=== PATIENT | female | born 1985 ===

== ENCOUNTER 2022-06-14 15:12 | Observation (INO) | payer OTHER ==
[2022-06-14] MEDS ORDERED: LORazepam 2 MG/ML INJ IM STA (15:18)
[2022-06-14 15:49] LABS: Basophils # (A) 0.1 k/uL (0-0.2); Basophils % (A) 1 %; Eosinophils # (A) 0.2 k/uL (0-0.7); Eosinophils % (A) 2 %; HCT 44.4 % (34.0-46.0); HGB 14.4 gm/dL (11.4-16.0); Lymphocytes # (A) 4.3 k/uL (1.0-4.8); Lymphocytes % (A) 34 %; MCH 28.9 pg (25.0-35.0); MCHC 32.4 g/dL (31.0-37.0); MCV 89.3 fL (80.0-100.0); Mean Platelet Volume 7.9; Monocytes # (A) 0.4 k/uL (0-1.0); Monocytes % (A) 3 %; Neutrophils # (A) 7.3 k/uL (1.3-7.7); Neutrophils % (A) 58 %; Platelet Count 347 k/uL (150-450); RBC 4.97 m/uL (3.80-5.40); WBC 12.5 k/uL (3.8-10.6)
[2022-06-14 15:56] LABS: African American GFR (CKD) >90 (>60 ml/min/1.73 sqM); Albumin 4.4 g/dL (3.5-5.0); Anion Gap 19 mmol/L; Carbon Dioxide 17 mmol/L (22-30); Chloride 111 mmol/L (98-107); Glucose 88 mg/dL (74-99); Non-African American GFR(CKD) >90 (>60 ml/min/1.73 sqM); Potassium 3.9 mmol/L (3.5-5.1); Sodium 147 mmol/L (137-145); Total Protein 7.5 g/dL (6.3-8.2)
--- NOTE | 2022-06-14 15:56 | ED ---
General Adult HPI - General Chief complaint: Alcohol Stated complaint: ETOH Time Seen by Provider: 06/14/22 15:18 Source: patient, EMS, RN notes reviewed, old records reviewed Mode of arrival: EMS Limitations: no limitations - History of Present Illness Initial comments: 37-year-old female presenting for alcohol intoxication. Patient is not compliant with a history but she was found by paramedics with a fifth of vodka. She does admit to alcohol consumption. Patient is not cooperative with history and physical exam. She is aggressive and required 4. restraints. - Related Data Allergies Allergy/AdvReac Type Severity Reaction Status Date / Time Penicillins Allergy Unknown Verified 06/14/22 15:24 Review of Systems ROS Statement: Those systems with pertinent positive or pertinent negative responses have been documented in the HPI. ROS Other: All systems not noted in ROS Statement are negative. General Exam Limitations: no limitations General appearance: alert, appears intoxicated Head exam: Present: atraumatic, normocephalic Eye exam: Present: normal appearance, PERRL ENT exam: Present: other ( poor Dentition) Neck exam: Present: normal inspection. Absent: tenderness Respiratory exam: Present: normal lung sounds bilaterally. Absent: respiratory distress Cardiovascular Exam: Present: normal rhythm, tachycardia GI/Abdominal exam: Present: soft. Absent: distended, tenderness, guarding Extremities exam: Present: normal inspection, normal capillary refill Psychiatric exam: Present: agitated, anxious Skin exam: Present: warm, dry, intact Course Vital Signs 06/14/22 15:12 Temperature 98.1 F Pulse Rate 119 H Respiratory 20 Rate Blood Pressure 162/76 O2 Sat by Pulse 96 Oximetry Procedures - Restraint - Face to Face Restraint Occurrence 1 Patient's Immediate Situation: Endangers self safety, Endangers others' safety, Endangers staff safety, Violent behavior Patient's Reaction to the Intervention: Uncooperative, Angry, Hostile, Belligerent Patient's Medical & Behavioral Condition: Awake, Alert, Anxious, Agitated Need to Continue or Terminate Restraint or Seclusion: Continue Face to Face Eval of Restraint Date: 06/14/22 Face to Face Eval of Restraint Time: 15:17 Medical Decision Making - Medical Decision Making Patient presents with alcohol intoxication, belligerent, aggressive behavior requiring 4. restraints. Patient does admit to alcohol consumption and states she is an alcoholic. She has an alcohol level [id number]. She will be admitted for close monitoring. Case discussed with [facility] physician group. - Lab Data Result diagrams: 06/14/22 15:36 06/14/22 15:36 Lab Results 06/14/22 06/14/22 Range/Units 15:36 15:36 WBC 12.5 H (3.8-10.6) k/uL RBC 4.97 (3.80-5.40) m/uL Hgb 14.4 (11.4-16.0) gm/dL Hct 44.4 (34.0-46.0) % MCV 89.3 (80.0-100.0) fL MCH 28.9 (25.0-35.0) pg MCHC 32.4 (31.0-37.0) g/dL RDW 15.0 (11.5-15.5) % Plt Count 347 (150-450) k/uL MPV 7.9 Neutrophils % 58 % Lymphocytes % 34 % Monocytes % 3 % Eosinophils % 2 % Basophils % 1 % Neutrophils # 7.3 (1.3-7.7) k/uL Lymphocytes # 4.3 (1.0-4.8) k/uL Monocytes # 0.4 (0-1.0) k/uL Eosinophils # 0.2 (0-0.7) k/uL Basophils # 0.1 (0-0.2) k/uL Sodium 147 H (137-145) mmol/L Potassium 3.9 (3.5-5.1) mmol/L Chloride 111 H (98-107) mmol/L Carbon Dioxide 17 L (22-30) mmol/L Anion Gap 19 mmol/L BUN 5 L (7-17) mg/dL Creatinine 0.62 (0.52-1.04) mg/dL Est GFR (CKD-EPI)AfAm >90 (>60 ml/min/1.73 sqM) Est GFR (CKD-EPI)NonAf >90 (>60 ml/min/1.73 sqM) Glucose 88 (74-99) mg/dL Calcium 9.1 (8.4-10.2) mg/dL Magnesium 1.8 (1.6-2.3) mg/dL Total Bilirubin 0.4 (0.2-1.3) mg/dL AST 45 H (14-36) U/L ALT 14 (4-34) U/L Alkaline Phosphatase 86 (38-126) U/L Total Protein 7.5 (6.3-8.2) g/dL Albumin 4.4 (3.5-5.0) g/dL Serum Alcohol 276 H* mg/dL Disposition Clinical Impression: Alcoholic intoxication Disposition: ADMITTED IP TO THIS HOSP Condition: Stable Is patient prescribed a controlled substance at d/c from ED?: No Referrals: None,Stated [Primary Care Provider] - 1-2 days Time of Disposition: 16:28
[2022-06-14 15:57] LABS: ALT 14 U/L (4-34); AST 45 U/L (14-36); Alkaline Phosphatase 86 U/L (38-126); Blood Urea Nitrogen 5 mg/dL (7-17); Calcium 9.1 mg/dL (8.4-10.2); Magnesium 1.8 mg/dL (1.6-2.3); Total Bilirubin 0.4 mg/dL (0.2-1.3)
[2022-06-14 15:58] LABS: Alcohol 276 mg/dL
[2022-06-14] MEDS ORDERED: LORazepam 2 MG/ML INJ IV STA (16:17)
[2022-06-14] MEDS ORDERED: NALOXONE 0.4 MG/ML 1 ML VIAL IV PRN (16:26)
[2022-06-14] MEDS ORDERED: THIAMINE 100 MG/ML 2 ML VIAL IM STA (16:27)
[2022-06-14] MEDS ORDERED: LORazepam 2 MG/ML INJ IV PRN (16:27)
[2022-06-14] MEDS ORDERED: ZIPRASIDONE 20 MG VIAL IM STA (16:33)
[2022-06-14] MEDS: SODIUM CHLORIDE 0.9% 1,000 ML IV SCH (16:47)
--- NOTE | 2022-06-14 17:25 | P.HPIM ---
History of Present Illness H&P Date: 06/14/22 Chief Complaint: Mental status changes Patient is a 37-year-old female presented to the hospital with intoxication. History is limited given patient's and able to provide. She is a poor historian. However there are medical contraindications patient was found by paramedics with a fifth of vodka and her hand. Patient reports that she drinks excessively at the fifth of vodka daily for several years. She has a desire to quit alcohol use. She reports that she has gone through significant all call withdrawals in the past and has had seizures. In the emergency room she is requiring to be restrained due to her aggressive behavior and agitation. She is not having any complaints of headaches no nausea vomiting fever or chills no cough or shortness of breath Review of Systems Full 12 point complete review of systems conducted pertinent positives noted in the HPI Medications and Allergies Allergies Allergy/AdvReac Type Severity Reaction Status Date / Time Penicillins Allergy Unknown Verified 06/14/22 15:24 Physical Exam Osteopathic Statement: *. No significant issues noted on an osteopathic structural exam other than those noted in the History and Physical/Consult. Vitals: Vital Signs Temp Pulse Resp BP Pulse Ox 06/14/22 15:12 98.1 F 119 H 20 162/76 96 Intake and Output 06/14/22 06/14/22 06/14/22 06:59 14:59 22:59 Other: Weight 113.398 kg Limitations: no limitations General appearance: alert, appears intoxicated Head exam: Normocephalic atraumatic Eye exam: Present: normal appearance, PERRL ENT exam: Patient has poor dentition Neck exam: Trachea midline no JVD neck is supple Respiratory exam: Breath sounds equal bilateral no wheezing Cardiovascular Exam: Regular rate and rhythm normal S1-S2 GI/Abdominal exam: soft. Absent: distended, tenderness, guarding Extremities exam: Normal inspection normal capillary refill below extremity edema Psychiatric exam: agitated, anxious Skin exam: Skin is warm dry and intact without any obvious rashes or lesions Results CBC & Chem 7: 06/14/22 15:36 06/14/22 15:36 Labs: Abnormal Lab Results - Last 24 Hours (Table) 06/14/22 06/14/22 Range/Units 15:36 15:36 WBC 12.5 H (3.8-10.6) k/uL Sodium 147 H (137-145) mmol/L Chloride 111 H (98-107) mmol/L Carbon Dioxide 17 L (22-30) mmol/L BUN 5 L (7-17) mg/dL AST 45 H (14-36) U/L Serum Alcohol 276 H* mg/dL Assessment and Plan (1) Alcoholic intoxication Current Visit: Yes Status: Acute Code(s): F10.929 - ALCOHOL USE, UNSPECIFIED WITH INTOXICATION, UNSPECIFIED SNOMED Code(s): 96046900 Plan: INTOXICATION alcohol Metabolic encephalopathy Impending alcohol withdrawal -Patient's serum alcohol 276. Altered with mentation delirious. Having behavioral aggression requiring 4 point restraints and chemical restraint of Geodon and Ativan. -Patient is admitted to the hospital for supportive care IV fluids. She reports intention of quitting alcohol. She has a medical history of alcohol withdrawal seizures -Continue with CIWA protocol, thiamine, MVI, IV fluids Hypernatremia -Continue with IV fluids Hypertension -Resume home medication when reconsult ionization is available. At this time we will start with metoprolol 25 mg twice a day Diet: Regular CODE STATUS: Full code DVT prophylaxis: Lovenox
[2022-06-14] MEDS: METOPROLOL TARTRATE 25 MG TAB PO SCH (22:42)
[2022-06-15] MEDS: LORazepam 2 MG/ML INJ IV PRN ×8 (01:06→23:10)
[2022-06-15 07:44] LABS: Amphetamine Screen,Urine Detected (NotDetected); Benzodiazepines Screen,Urine Detected (NotDetected); Cocaine Screen,Urine Not Detected (NotDetected); Opiate Screen,Urine Not Detected (NotDetected); Phencyclidine Screen,Urine Not Detected (NotDetected); Urn Cannabinoid Scrn Not Detected (NotDetected)
[2022-06-15 07:45] LABS: Barbiturate Screen,Urine Not Detected (NotDetected); Methadone Screen, Urine Not Detected (NotDetected); Oxycodone Screen, Urine Not Detected (NotDetected); Tricyclic Antidepressant,Urine Not Detected (NotDetected)
[2022-06-15 07:47] LABS: Appearance,Urine Cloudy (Clear); Bilirubin,Urine Negative (Negative); Blood,Urine Negative (Negative); Color,Urine Yellow; Glucose,Urine (UA) Negative (Negative); Ketones,Urine Negative (Negative); Leukocyte Esterase,Urine Large (Negative); Mucus,Urine Occasional /hpf; Nitrite,Urine Negative (Negative); Protein,Urine Trace (Negative); RBC,Urine 8 /hpf (0-5); Specific Gravity,Urine 1.023 (1.001-1.035); Squamous Epithelial Cell,Urine 8 /hpf (0-4); Urobilinogen,Urine <2.0 mg/dL (<2.0); WBC,Urine 67 /hpf (0-5)
[2022-06-15] MEDS: SODIUM CHLORIDE 0.9% 1,000 ML IV SCH ×2 (08:00→17:16)
[2022-06-15] MEDS: ENOXAPARIN 40 MG/0.4 ML SYRINGE SQ SCH (08:01)
[2022-06-15] MEDS: THIAMINE 100 MG TAB PO SCH ×2 (08:02→17:16)
[2022-06-15] MEDS: METOPROLOL TARTRATE 25 MG TAB PO SCH ×2 (08:02→20:24)
[2022-06-15] MEDS: MULTIVITAMINS, THERA 1 EACH TAB PO SCH (08:02)
[2022-06-15 08:53] LABS: Basophils # (A) 0.12 X 10*3/uL (0.00-0.10); Basophils % (A) 0.9 %; Eosinophils # (A) 0.23 X 10*3/uL (0.04-0.35); Eosinophils % (A) 1.6 %; HCT 40.3 % (37.2-46.3); HGB 12.9 g/dL (12.0-15.0); Immature Grans, Automated 0.5 %; Lymphocytes # (A) 3.45 X 10*3/uL (0.90-5.00); Lymphocytes % (A) 24.6 %; MCH 28.4 pg (27.0-32.0); MCV 88.6 fL (80.0-97.0); Monocytes % (A) 8.6 %; NRBC Per 100 WBC 0 /100 WBCS (0.0-0.0); Neutrophils # (A) 8.93 X 10*3/uL (1.80-7.70); Neutrophils % (A) 63.8 %; Platelet Count 328 X 10*3/uL (140-440); RBC 4.55 X 10*6/uL (4.10-5.20); RDW 15.1 % (11.5-14.5)
[2022-06-15] MEDS: CEPHALEXIN 500 MG CAP PO SCH ×2 (09:02→20:24)
[2022-06-15] MEDS: LURASIDONE 20 MG TAB PO SCH (09:02)
[2022-06-15] MEDS: GABAPENTIN 400 MG CAP PO SCH ×3 (09:02→20:24)
[2022-06-15] MEDS: FLUoxetine HCL 20 MG CAP PO SCH (09:12)
[2022-06-15 10:49] LABS: African American GFR (CKD) 136.9 (60.0-200.0); Anion Gap 10.8 mmol/L (10.00-18.00); BUN/Creat Ratio 16.17 Ratio (12.00-20.00); Blood Urea Nitrogen 9.7 mg/dL (9.0-27.0); Calcium 9.1 mg/dL (8.7-10.3); Carbon Dioxide 22.2 mmol/L (20.0-27.5); Non-African American GFR(CKD) 118.1 (60.0-200.0); Potassium 4.1 mmol/L (3.5-5.5)
--- NOTE | 2022-06-15 13:19 | P.PN ---
Subjective Progress Note Date: 06/15/22 Principal diagnosis: Alcohol intoxication Patient seen and examined today. She is complaining of some tremors and withdrawal symptoms of alcohol. She still requiring Ativan Objective - Vital Signs Vital signs: Vital Signs Temp 98.6 F 06/15/22 11:30 Pulse 86 06/15/22 11:30 Resp 18 06/15/22 11:51 BP 180/98 06/15/22 11:30 Pulse Ox 99 06/15/22 11:30 FiO2 Intake & Output 06/14/22 06/15/22 06/15/22 18:59 06:59 18:59 Intake Total 500 Balance 500 Weight 113.398 kg 113.398 kg Intake: Oral 500 Other: Voiding Method Toilet # Voids 1 - Exam INTOXICATION alcohol present on admission Metabolic encephalopathy Impending alcohol withdrawal -Patient's serum alcohol was 276. Altered with mentation delirious. Having behavioral aggression requiring 4 point restraints and chemical restraint of Geodon and Ativan. -Patient is now off of restraints. -Patient is admitted to the hospital for supportive care IV fluids. She reports intention of quitting alcohol. She has a medical history of alcohol withdrawal seizures -Continue with CIWA protocol, thiamine, MVI, IV fluids Hypernatremia -Improved with IV fluids Hypertension -25 mg twice a day metoprolol Depression Anxiety -Continue with patient's home medication including latuda, prozac. Insomnia -Mirtazapine daily at bedtime Diet: Regular CODE STATUS: Full code DVT prophylaxis: Lovenox - Labs CBC & Chem 7: 06/15/22 06:07 06/15/22 06:07 Labs: Abnormal Lab Results - Last 24 Hours (Table) 06/14/22 06/14/22 06/15/22 Range/Units 15:36 15:36 05:00 WBC 12.5 H (3.8-10.6) k/uL RDW (11.5-14.5) % Immature Gran # (0.00-0.04) X 10*3/uL Neutrophils # (1.80-7.70) X 10*3/uL Monocytes # (0.20-1.00) X 10*3/uL Basophils # (0.00-0.10) X 10*3/uL Sodium 147 H (137-145) mmol/L Chloride 111 H (98-107) mmol/L Carbon Dioxide 17 L (22-30) mmol/L BUN 5 L (7-17) mg/dL AST 45 H (14-36) U/L Urine Appearance Cloudy H (Clear) Urine Protein Trace H (Negative) Ur Leukocyte Esterase Large H (Negative) Urine RBC 8 H (0-5) /hpf Urine WBC 67 H (0-5) /hpf Ur Squamous Epith Cells 8 H (0-4) /hpf Urine Mucus Occasional H (None) /hpf Ur Amphetamines Screen Detected H (NotDetected) U Benzodiazepines Scrn Detected H (NotDetected) Serum Alcohol 276 H* mg/dL 06/15/22 Range/Units 06:07 WBC 14.00 H (3.8-10.6) k/uL RDW 15.1 H (11.5-14.5) % Immature Gran # 0.07 H (0.00-0.04) X 10*3/uL Neutrophils # 8.93 H (1.80-7.70) X 10*3/uL Monocytes # 1.20 H (0.20-1.00) X 10*3/uL Basophils # 0.12 H (0.00-0.10) X 10*3/uL Sodium (137-145) mmol/L Chloride (98-107) mmol/L Carbon Dioxide (22-30) mmol/L BUN (7-17) mg/dL AST (14-36) U/L Urine Appearance (Clear) Urine Protein (Negative) Ur Leukocyte Esterase (Negative) Urine RBC (0-5) /hpf Urine WBC (0-5) /hpf Ur Squamous Epith Cells (0-4) /hpf Urine Mucus (None) /hpf Ur Amphetamines Screen (NotDetected) U Benzodiazepines Scrn (NotDetected) Serum Alcohol mg/dL Assessment and Plan (1) Alcoholic intoxication Current Visit: Yes Status: Acute Code(s): F10.929 - ALCOHOL USE, UNSPECIFIED WITH INTOXICATION, UNSPECIFIED SNOMED Code(s): 50460089
[2022-06-15] MEDS: LOSARTAN 50 MG TAB PO SCH (17:16)
[2022-06-15] MEDS: MIRTAZAPINE 15 MG TAB PO SCH (20:24)
[2022-06-16] MEDS: LORazepam 2 MG/ML INJ IV PRN (04:57)
[2022-06-16] MEDS: LURASIDONE 20 MG TAB PO SCH (08:14)
[2022-06-16] MEDS: SODIUM CHLORIDE 0.9% 1,000 ML IV SCH (08:14)
[2022-06-16] MEDS: METOPROLOL TARTRATE 25 MG TAB PO SCH ×2 (08:14→20:00)
[2022-06-16] MEDS: FLUoxetine HCL 20 MG CAP PO SCH (08:14)
[2022-06-16] MEDS: CEPHALEXIN 500 MG CAP PO SCH ×2 (08:14→20:00)
[2022-06-16] MEDS: ENOXAPARIN 40 MG/0.4 ML SYRINGE SQ SCH (08:14)
[2022-06-16] MEDS: LOSARTAN 50 MG TAB PO SCH (08:14)
[2022-06-16] MEDS: GABAPENTIN 400 MG CAP PO SCH ×3 (08:14→21:57)
[2022-06-16] MEDS: THIAMINE 100 MG TAB PO SCH ×2 (08:14→16:43)
[2022-06-16] MEDS: MULTIVITAMINS, THERA 1 EACH TAB PO SCH (08:14)
[2022-06-16] MEDS: chlordiazePOXIDE 25 MG CAP PO PRN ×2 (11:21→20:00)
--- NOTE | 2022-06-16 16:44 | P.PN ---
Subjective Principal diagnosis: Alcohol intoxication Patient seen and examined. She still having symptoms of withdrawal from alcohol. She is requiring IV Ativan. Still has tremors Objective - Vital Signs Vital signs: Vital Signs Temp 98.4 F 06/16/22 12:38 Pulse 80 06/16/22 12:38 Resp 16 06/16/22 12:38 BP 141/88 06/16/22 12:38 Pulse Ox 94 L 06/16/22 12:38 FiO2 Intake & Output 06/15/22 06/16/22 06/16/22 18:59 06:59 18:59 Intake Total 900 Balance 900 Intake: Intake, IV Titration 900 Amount Sodium Chloride 0.9% 1, 900 000 ml @ 75 mls/hr IV . [id number] [facility] Rx#:[id number] Other: Voiding Method Toilet Toilet # Voids 4 - Exam INTOXICATION alcohol present on admission Metabolic encephalopathy Impending alcohol withdrawal -Patient's serum alcohol was 276. Altered with mentation delirious. Having behavioral aggression requiring 4 point restraints and chemical restraint of Geodon and Ativan. -Patient is now off of restraints. -Patient is admitted to the hospital for supportive care IV fluids. She reports intention of quitting alcohol. She has a medical history of alcohol withdrawal seizures -Continue with CIWA protocol, thiamine, MVI, IV fluids Hypernatremia -Improved with IV fluids Hypertension -25 mg twice a day metoprolol Depression Anxiety -Continue with patient's home medication including latuda, prozac. Insomnia -Mirtazapine daily at bedtime Diet: Regular CODE STATUS: Full code DVT prophylaxis: Lovenox - Labs CBC & Chem 7: 06/15/22 06:07 06/15/22 06:07 Labs: Microbiology - Last 24 Hours (Table) 06/15/22 05:00 Urine Culture - Final Urine,Voided Strep agalactiae - (group b) Assessment and Plan (1) Alcoholic intoxication Current Visit: Yes Status: Acute Code(s): F10.929 - ALCOHOL USE, UNSPECIFIED WITH INTOXICATION, UNSPECIFIED SNOMED Code(s): 12740674 Plan: INTOXICATION alcohol Metabolic encephalopathy Impending alcohol withdrawal -Patient's serum alcohol 276. Altered with mentation delirious. Patient was requiring 4 point restraints on admission which has now improved and she is alert and responsive and following commands -Patient is admitted to the hospital for supportive care IV fluids. She reports intention of quitting alcohol. She has a medical history of alcohol withdrawal seizures -Continue with CIWA protocol, thiamine, MVI, IV fluids -Librium added 50 mg 3 times a day UTI Keflex Hypernatremia -Resolved with IV fluids. We will discontinue S patient is tolerating an oral diet without Hypertension -Currently on metoprolol 25 mg every 12, losartan 50 mg daily Disposition: Anticipate discharge within the next 24-48 hours Diet: Regular CODE STATUS: Full code DVT prophylaxis: Lovenox
[2022-06-16] MEDS ORDERED: LORazepam 1 MG/0.5 ML VIAL IV PRN ×2 (17:19)
[2022-06-16] MEDS: MIRTAZAPINE 15 MG TAB PO SCH (20:00)
[2022-06-17] MEDS: chlordiazePOXIDE 25 MG CAP PO PRN (07:13)
[2022-06-17] MEDS: FLUoxetine HCL 20 MG CAP PO SCH (07:14)
[2022-06-17] MEDS: THIAMINE 100 MG TAB PO SCH (07:14)
[2022-06-17] MEDS: MULTIVITAMINS, THERA 1 EACH TAB PO SCH (07:14)
[2022-06-17] MEDS: GABAPENTIN 400 MG CAP PO SCH (07:14)
[2022-06-17] MEDS: LOSARTAN 50 MG TAB PO SCH (07:14)
[2022-06-17] MEDS: METOPROLOL TARTRATE 25 MG TAB PO SCH (07:14)
[2022-06-17] MEDS: CEPHALEXIN 500 MG CAP PO SCH (07:14)
[2022-06-17] MEDS: ENOXAPARIN 40 MG/0.4 ML SYRINGE SQ SCH (07:15)
[2022-06-17] MEDS: LURASIDONE 20 MG TAB PO SCH (07:15)
--- NOTE | 2022-06-17 11:52 | P.PN ---
Subjective Progress Note Date: 06/17/22 Principal diagnosis: Alcohol intoxication Patient seen and examined. Patient was admitted to the hospital with alcohol withdrawal symptoms. Patient was scheduled to be discharged today however today patient voiced that she has suicidal ideations. Patient states that she does n ot know what to do with her life and she wants to she states that she has often thought about throwing herself in front of a moving vehicle. She states that she is a mess and she does not know what to do. Psychiatric team has been consulted and patient has been placed in suicide precautions with one-to-one sitter. Objective - Vital Signs Vital signs: Vital Signs Temp 98.3 F 06/17/22 04:52 Pulse 84 06/17/22 04:52 Resp 15 06/17/22 04:52 BP 149/88 06/17/22 04:52 Pulse Ox 98 06/17/22 04:52 FiO2 Intake & Output 06/16/22 06/17/22 06/17/22 18:59 06:59 18:59 Intake Total 900 Balance 900 Intake: Intake, IV Titration 900 Amount Sodium Chloride 0.9% 1, 900 000 ml @ 75 mls/hr IV . [id number] [facility] Rx#:[id number] Other: Voiding Method Toilet Toilet # Voids 1 - Exam INTOXICATION alcohol present on admission Metabolic encephalopathy Impending alcohol withdrawal -Patient's serum alcohol was 276. Altered with mentation delirious. Having behavioral aggression requiring 4 point restraints and chemical restraint of Geodon and Ativan. -Patient is now off of restraints. -Patient is admitted to the hospital for supportive care IV fluids. She reports intention of quitting alcohol. She has a medical history of alcohol withdrawal seizures -Continue with CIWA protocol, thiamine, MVI, IV fluids Hypernatremia -Improved with IV fluids Hypertension -25 mg twice a day metoprolol Depression Anxiety -Continue with patient's home medication including latuda, prozac. Insomnia -Mirtazapine daily at bedtime Diet: Regular CODE STATUS: Full code DVT prophylaxis: Lovenox - Labs CBC & Chem 7: 06/15/22 06:07 06/15/22 06:07 Labs: Microbiology - Last 24 Hours (Table) 06/15/22 05:00 Urine Culture - Final Urine,Voided Strep agalactiae - (group b) Assessment and Plan (1) Alcoholic intoxication Current Visit: Yes Status: Acute Code(s): F10.929 - ALCOHOL USE, UNSPECIFIED WITH INTOXICATION, UNSPECIFIED SNOMED Code(s): 58961238 Plan: INTOXICATION alcohol Metabolic encephalopathy Alcohol withdrawal -Patient's serum alcohol 276 present on admission. Patient was altered with mentation delirious. Patient was requiring 4 point restraints on admission -Patient is now alert and oriented 3 following all commands and has returned back to baseline mentation -Patient has been doing well with oral Librium for all call withdrawals. She is not requiring any IV Ativan for withdrawal symptoms. -Continue with CIWA protocol, thiamine, MVI, -Librium 50 mg 3 times a day UTI Keflex for additional 3 days for completion of therapy Hypernatremia -Resolved with IV fluids. Hypertension -Currently on metoprolol 25 mg every 12, losartan 50 mg daily Suicide ideation Major depression -Patient's home medications include Latuda, mirtazapine. -Patient is having reports of despair and suicide ideations by stating that she sometimes thinks about throwing herself in front of a moving car. -Patient has been placed suicide precautions with one-to-one sitter. -Psychiatric team consulted for inpatient psychiatric recommendations Disposition: Patient is medically stable for discharge however is voicing suicidal ideation. Patient will need to be evaluated by psychiatric team. Patient is stable to go to inpatient psych facility if appropriate Diet: Regular CODE STATUS: Full code DVT prophylaxis: Lovenox
[2022-06-17 13:23] VITALS: BP 118/83; PULSE 60; RESP 16; TEMP 98.5
--- NOTE | 2022-06-17 14:37 | P.DS ---
Providers Date of admission: 06/14/22 16:26 Attending physician: Jane Carbajal MD Consults: 06/17/22 08:53 Consult Physician Routine Consulting Provider: Benton Parikh Consult Reason/Comments: suicide ideations Do you want consulting provider notified?: Already Contacted Primary care physician: Stated None - Discharge Diagnosis(es) (1) Alcoholic intoxication Current Visit: Yes Status: Acute Hospital Course: patient is a 37-year-old female who presented to the hospital with acute alcohol intoxication and metabolic encephalopathy. Patient initially required restraints secondary to behavioral agitation. Patient was gradually able to come off of restraints and she returned back to her baseline mentation. She was found to have significant INTOXICATION PRESENT ON ADMISSION. 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 PATIENT WAS ADMITTED TO THE HOSPITAL AND TREATED FOR ALCOHOL WITHDRAWAL SYMPTOMS. OBJECTIVE DISCHARGE AND SHE WAS EVALUATED AND SHE STATED THAT SHE HAD SUICIDAL IDEATIONS. THEREFORE PSYCHIATRIC TEAM WAS CONSULTED and was cleared for discharge. Patient has inpatient alcohol bedside up at [place]. Patient Condition at Discharge: Stable Plan - Discharge Summary Discharge Rx Participant: Yes New Discharge Prescriptions: New chlordiazePOXIDE HCl [Librium] 50 mg PO TID PRN #18 cap PRN Reason: Alcohol Withdrawal Metoprolol Tartrate [Lopressor] 25 mg PO Q12HR #60 tab Losartan [Cozaar] 50 mg PO DAILY 30 Days #30 tab Cephalexin [Keflex] 500 mg PO BID 3 Days #6 cap Continue Lurasidone HCl [Latuda] 60 mg PO DAILY Gabapentin [Neurontin] 800 mg PO TID Mirtazapine [Remeron] 15 mg PO HS metFORMIN HCL [Glucophage] 500 mg PO W/BRKFST QUEtiapine [SEROquel] 25 mg PO TID PRN PRN Reason: Anxiety FLUoxetine HCL [PROzac] 20 mg PO DAILY Discontinued amLODIPine [Norvasc] 5 mg PO DAILY Discharge Medication List FLUoxetine HCL [PROzac] 20 mg PO DAILY 06/14/22 [History] Gabapentin [Neurontin] 800 mg PO TID 06/14/22 [History] Lurasidone HCl [Latuda] 60 mg PO DAILY 06/14/22 [History] Mirtazapine [Remeron] 15 mg PO HS 06/14/22 [History] QUEtiapine [SEROquel] 25 mg PO TID PRN 06/14/22 [History] metFORMIN HCL [Glucophage] 500 mg PO W/BRKFST 06/14/22 [History] Cephalexin [Keflex] 500 mg PO BID 3 Days #6 cap 06/17/22 [Rx] Losartan [Cozaar] 50 mg PO DAILY 30 Days #30 tab 06/17/22 [Rx] Metoprolol Tartrate [Lopressor] 25 mg PO Q12HR #60 tab 06/17/22 [Rx] chlordiazePOXIDE HCl [Librium] 50 mg PO TID PRN #18 cap 06/17/22 [Rx] Follow up Appointment(s)/Referral(s): None,Stated [Primary Care Provider] - 1-2 days Discharge/Stand Alone Forms: AA Meetings [facility] [place], [facility], In Substance Abuse Facilities Discharge Disposition: HOME SELF-CARE
--- NOTE | 2022-06-17 14:52 | P.CN ---
Psychiatric Consult - . Consult date: 06/17/22 Consult:: 06/17/22 14:50 IDENTIFYING DATA: This patient is a homeless, recently unemployed, 37-year-old female with significant history of alcohol use disorder and heroin use who presented to the hospital on 06/14/2022 for acute intoxication. HISTORY OF PRESENT ILLNESS: The patient presented to the hospital on 06/14/2022 for acute intoxication. The patient was found by paramedics with fifth of vodka in her hand. She was subsequently admitted for alcohol withdrawal. The patient is scheduled for admission to inpatient substance abuse rehabilitation today. Psychiatrist been consulted as the patient endorsed depression and suicidal ideation. Upon evaluation by this provider, the patient reports that she has had thoughts of not wanting to be here however denies any active suicidal intention or plan. She reports no prior attempts at suicide. She does report significant life stressors including her homelessness as well as her inability to live with her boyfriend as he is now able to stay at a assisted house while she was staying in the motel they were in together. Despite this, the patient remains future and goal oriented with a strong desire to return to [facility] for inpatient substance abuse rehabilitation. She is currently denying any auditory or visual hallucinations. She reports no paranoia or other delusions. She expresses a strong desire to live for herself and for her children. She has 2 kids who she shares custody with their father. PAST PSYCHIATRIC HISTORY: Patient has a history of depression, anxiety, alcohol use disorder, and heroin abuse. The patient is currently on a home regimen of latuda, Neurontin, Remeron, Prozac, and Seroquel. The patient does report prior inpatient psychiatric admission approximately 1 to 2 years ago. Patient follows with substance abuse counseling and outpatient setting. She also attends AA and NA meetings. Patient denies any history of suicide attempts in the past. PAST MEDICAL HISTORY: No reported medical issues as per patient. ALLERGIES: Penicillin CHEMICAL DEPENDENCY HISTORY: Patient does admit to drinking a fifth of vodka per day. Furthermore, the patient is admitted to recent and she nasal heroin use. She denies any other drug use. She also reports that there is concern that the heroin might of been laced with fentanyl as a tech 6 doses of Narcan to resuscitate her. FAMILY PSYCHIATRIC/SUBSTANCE USE HISTORY: No reported history SOCIAL HISTORY: Patient was born and raised in [place], [place]. She reports a ninth grade education. She has 2 children who are currently with her father. She is currently homeless. MENTAL STATUS EXAM: General Appearance: Patient appears to be stated age is alert, pleasant, and cooperative. Patient appears to have disheveled hygiene and grooming wearing hospital gown with fair eye contact. Behavior: Patient is calmly lying in bed without any agitated behavior. Speech: Patient's speech is fluent and nonpressured. Mood/Affect: Patient reports their mood is "feeling okay", affect is congruent and euthymic Suicidality/Homicidality: Patient denies any suicidal or homicidal ideation, intention, and/or plan. Perceptions: Patient denies any visual hallucinations and denies any auditory hallucinations Though content/process: There is no evidence of any delusional thought content and thought process is linear and goal-directed. The patient is future oriented. Memory and concentration: AOX3, grossly intact for the purposes of this session. Can spell "WORLD" backwards Judgment and insight: Fair IMPRESSIONS: Major depressive disorder Alcohol use disorder Heroin use disorder PLAN: -At this time patient DOES NOT meet criteria for inpatient psychiatric admission. The patient is future and goal oriented and does not present an imminent risk of harm to self or others. She does not report any access to firearms or other weapons and reports a strong desire to live for herself and for her family. She plans to go to inpatient substance abuse rehabilitation up on discharge. -Would recommend the following medication changes/additions: No medication recommendations be made at this time. Patient is to continue her home medication regimen. -Discontinue one-to-one sitte -Recommend outpatient psychiatric follow-up. Recommend outpatient counselling services. -Approximately 20 minutes were spent in engaging the patient in motivational interviewing and reflective listening in regards to her polysubstance use disorder -Psychiatry will sign off at this point, please contact with any questions. Vital Signs Temp 98.5 F 06/17/22 12:50 Pulse 60 06/17/22 12:50 Resp 16 06/17/22 12:50 BP 118/83 06/17/22 12:50 Pulse Ox 98 06/17/22 12:50 FiO2 Intake & Output 06/16/22 06/17/22 06/17/22 18:59 06:59 18:59 Intake Total 900 Balance 900 Intake: Intake, IV Titration 900 Amount Sodium Chloride 0.9% 1, 900 000 ml @ 75 mls/hr IV . [id number] [facility] Rx#:[id number] Other: Voiding Method Toilet Toilet # Voids 1 Laboratory Results WBC 14.00 X 10*3/uL (4.50-10.00) H 06/15/22 06:07 RBC 4.55 X 10*6/uL (4.10-5.20) 06/15/22 06:07 Hgb 12.9 g/dL (12.0-15.0) 06/15/22 06:07 Hct 40.3 % (37.2-46.3) 06/15/22 06:07 MCV 88.6 fL (80.0-97.0) 06/15/22 06:07 MCH 28.4 pg (27.0-32.0) 06/15/22 06:07 MCHC 32.0 g/dL (32.0-37.0) 06/15/22 06:07 RDW 15.1 % (11.5-14.5) H 06/15/22 06:07 Plt Count 328 X 10*3/uL (140-440) 06/15/22 06:07 MPV 11.0 fL (9.5-12.2) 06/15/22 06:07 Immature Gran % (Auto) 0.5 % 06/15/22 06:07 Absolute Nucleated RBC 0 X 10*3/uL (0.00-0.00) 06/15/22 06:07 Neutrophils % 63.8 % 06/15/22 06:07 Lymphocytes % 24.6 % 06/15/22 06:07 Monocytes % 8.6 % 06/15/22 06:07 Eosinophils % 1.6 % 06/15/22 06:07 Basophils % 0.9 % 06/15/22 06:07 Immature Gran # 0.07 X 10*3/uL (0.00-0.04) H 06/15/22 06:07 Neutrophils # 8.93 X 10*3/uL (1.80-7.70) H 06/15/22 06:07 Lymphocytes # 3.45 X 10*3/uL (0.90-5.00) 06/15/22 06:07 Monocytes # 1.20 X 10*3/uL (0.20-1.00) H 06/15/22 06:07 Eosinophils # 0.23 X 10*3/uL (0.04-0.35) 06/15/22 06:07 Basophils # 0.12 X 10*3/uL (0.00-0.10) H 06/15/22 06:07 NRBC/100 WBC Diff 0 /100 WBCS (0.0-0.0) 06/15/22 06:07 Sodium 137 mmol/L (135-145) 06/15/22 06:07 Potassium 4.1 mmol/L (3.5-5.5) 06/15/22 06:07 Chloride 104 mmol/L (96-109) 06/15/22 06:07 Carbon Dioxide 22.2 mmol/L (20.0-27.5) 06/15/22 06:07 Anion Gap 10.80 mmol/L (10.00-18.00) 06/15/22 06:07 BUN 9.7 mg/dL (9.0-27.0) 06/15/22 06:07 Creatinine 0.6 mg/dL (0.6-1.5) 06/15/22 06:07 Est GFR (CKD-EPI)AfAm 136.9 (60.0-200.0) 06/15/22 06:07 Est GFR (CKD-EPI)NonAf 118.1 (60.0-200.0) 06/15/22 06:07 BUN/Creatinine Ratio 16.17 Ratio (12.00-20.00) 06/15/22 06:07 Glucose 82 mg/dL (70-110) 06/15/22 06:07 Calcium 9.1 mg/dL (8.7-10.3) 06/15/22 06:07 Magnesium 1.8 mg/dL (1.6-2.3) 06/14/22 15:36 Total Bilirubin 0.4 mg/dL (0.2-1.3) 06/14/22 15:36 AST 45 U/L (14-36) H 06/14/22 15:36 ALT 14 U/L (4-34) 06/14/22 15:36 Alkaline Phosphatase 86 U/L (38-126) 06/14/22 15:36 Total Protein 7.5 g/dL (6.3-8.2) 06/14/22 15:36 Albumin 4.4 g/dL (3.5-5.0) 06/14/22 15:36 Urine Color Yellow 06/15/22 05:00 Urine Appearance Cloudy (Clear) H 06/15/22 05:00 Urine pH 7.0 (5.0-8.0) 06/15/22 05:00 Ur Specific Lilly 1.023 (1.001-1.035) 06/15/22 05:00 Urine Protein Trace (Negative) H 06/15/22 05:00 Urine Glucose (UA) Negative (Negative) 06/15/22 05:00 Urine Ketones Negative (Negative) 06/15/22 05:00 Urine Blood Negative (Negative) 06/15/22 05:00 Urine Nitrite Negative (Negative) 06/15/22 05:00 Urine Bilirubin Negative (Negative) 06/15/22 05:00 Urine Urobilinogen <2.0 mg/dL (<2.0) 06/15/22 05:00 Ur Leukocyte Esterase Large (Negative) H 06/15/22 05:00 Urine RBC 8 /hpf (0-5) H 06/15/22 05:00 Urine WBC 67 /hpf (0-5) H 06/15/22 05:00 Ur Squamous Epith Cells 8 /hpf (0-4) H 06/15/22 05:00 Urine Mucus Occasional /hpf (None) H 06/15/22 05:00 Urine Opiates Screen Not Detected (NotDetected) 06/15/22 05:00 Ur Oxycodone Screen Not Detected (NotDetected) 06/15/22 05:00 Urine Methadone Screen Not Detected (NotDetected) 06/15/22 05:00 Ur Propoxyphene Screen Not Detected (NotDetected) 06/15/22 05:00 Ur Barbiturates Screen Not Detected (NotDetected) 06/15/22 05:00 U Tricyclic Antidepress Not Detected (NotDetected) 06/15/22 05:00 Ur Phencyclidine Scrn Not Detected (NotDetected) 06/15/22 05:00 Ur Amphetamines Screen Detected (NotDetected) H 06/15/22 05:00 U Methamphetamines Scrn Not Detected (NotDetected) 06/15/22 05:00 U Benzodiazepines Scrn Detected (NotDetected) H 06/15/22 05:00 Urine Cocaine Screen Not Detected (NotDetected) 06/15/22 05:00 U Marijuana (THC) Screen Not Detected (NotDetected) 06/15/22 05:00 Serum Alcohol 276 mg/dL H* 06/14/22 15:36 Allergies Allergy/AdvReac Type Severity Reaction Status Date / Time Penicillins Allergy Unknown Verified 06/14/22 15:24 06/17/22 14:51
== END 2022-06-17 14:50 ==
LOC: EC 15:12 → 5NMEDONC 16:26 → 4SSUR 22:08 → 5NMEDONC 22:24
PROVIDERS: ADMIT Internal Medicine; ATTEND Internal Medicine
DX: F10.220 Alcohol dependence with intoxication, uncomplicated (principal); F10.239 Alcohol dependence with withdrawal, unspecified; G93.41 Metabolic encephalopathy; N39.0 Urinary tract infection, site not specified; R45.851 Suicidal ideations; F32.9 Major depressive disorder, single episode, unspecified; E87.0 Hyperosmolality and hypernatremia; F11.10 Opioid abuse, uncomplicated; I10 Essential (primary) hypertension; F41.8 Other specified anxiety disorders; G47.00 Insomnia, unspecified; Z78.1 Physical restraint status; Z88.0 Allergy status to penicillin; Z59.00 Homelessness unspecified; Z56.0 Unemployment, unspecified; Y90.8 Blood alcohol level of 240 mg/100 ml or more
CPT/HCPCS: 96376 ×3; 96361 ×4; 96372 ×3; 96374; 99285; 36415; 80053; 80048; 83735; 85025 ×2; 81001; 80306; 80320; 87086; G0378 ×4; J2060 ×4; J3411; J1650 ×2; J3486

== ENCOUNTER 2023-02-07 12:23 | Inpatient (IN) | payer MEDICAID, OTHER ==
[2023-02-07] MEDS ORDERED: LORazepam 2 MG/ML INJ IM STA ×2 (15:04→16:02)
[2023-02-07 15:07] LABS: Appearance,Urine Cloudy (Clear); Bacteria,Urine Many /hpf; Bilirubin,Urine Negative (Negative); Blood,Urine Trace (Negative); Color,Urine Light Yellow; Glucose,Urine (UA) Negative (Negative); Hyaline Casts,Urine 5 /lpf (0-2); Ketones,Urine Negative (Negative); Leukocyte Esterase,Urine Large (Negative); Mucus,Urine Few /hpf; Nitrite,Urine Negative (Negative); PH, Urine 5.5 (5.0-8.0); Protein,Urine Trace (Negative); RBC,Urine 92 /hpf (0-5); Squamous Epithelial Cell,Urine 10 /hpf (0-4); Urobilinogen,Urine <2.0 mg/dL (<2.0); WBC,Urine 46 /hpf (0-5)
[2023-02-07 15:14] LABS: Amphetamine Screen,Urine Not Detected (NotDetected); Barbiturate Screen,Urine Not Detected (NotDetected); Benzodiazepines Screen,Urine Not Detected (NotDetected); Cocaine Screen,Urine Not Detected (NotDetected); Methadone Screen, Urine Not Detected (NotDetected); Opiate Screen,Urine Not Detected (NotDetected); Oxycodone Screen, Urine Not Detected (NotDetected); Phencyclidine Screen,Urine Not Detected (NotDetected); Tricyclic Antidepressant,Urine Not Detected (NotDetected); Urn Cannabinoid Scrn Not Detected (NotDetected)
--- NOTE | 2023-02-07 15:40 | ED ---
Psych HPI - General Chief Complaint: Psychiatric Symptoms Stated Complaint: Mental health Time Seen by Provider: 02/07/23 13:31 Source: patient, RN notes reviewed Mode of arrival: ambulatory - History of Present Illness Initial Comments: Patient is a 37-year-old female brought in to the emergency room by police however case not discussed with police by this provider. Patient reports that she was brought in as she was attempting to kill herself by jumping in front of a bus. Patient reports severe depression and anxiety that has been worsening over the last several days and her suicidal thoughts have worsened to the point where she attempted to kill herself earlier today. She has a known history of bipolar depression and anxiety; she is supposed to be on multiple mental health medications however she is not currently taking any. It has been approximately 3 weeks since her last medication which included Prozac, Remeron Seroquel, latuda and gabapentin. She denies any hallucinations both auditory or visual. She denies any thoughts of harming others. In addition to her mental health history she has a past medical history significant for hypertension and seizures. - Related Data Home Medications Medication Instructions Recorded Confirmed FLUoxetine HCL [PROzac] 20 mg PO DAILY 06/14/22 02/07/23 Gabapentin [Neurontin] 800 mg PO TID 06/14/22 02/07/23 Lurasidone [Latuda] 60 mg PO DAILY 06/14/22 02/07/23 Mirtazapine [Remeron] 15 mg PO HS 06/14/22 02/07/23 QUEtiapine [SEROquel] 25 mg PO TID PRN 06/14/22 02/07/23 metFORMIN HCL [Glucophage] 500 mg PO DAILY 06/14/22 02/07/23 Albuterol Sulfate [Albuterol 1 - 2 puff PO RT-Q6H PRN 02/07/23 02/07/23 Sulfate Hfa] Losartan Potassium 100 mg PO DAILY 02/07/23 02/07/23 amLODIPine [Norvasc] 5 mg PO DAILY 02/07/23 02/07/23 Allergies Allergy/AdvReac Type Severity Reaction Status Date / Time Penicillins Allergy hives Verified 02/07/23 15:38 Review of Systems ROS Statement: Those systems with pertinent positive or pertinent negative responses have been documented in the HPI. ROS Other: All systems not noted in ROS Statement are negative. Past Medical History Past Medical History: Hypertension, Seizure Disorder History of Any Multi-Drug Resistant Organisms: None Reported Past Surgical History: Section Past Anesthesia/Blood Transfusion Reactions: No Reported Reaction Past Psychological History: Anxiety, Bipolar, Depression Smoking Status: Current every day smoker Past Alcohol Use History: Heavy Past Drug Use History: None Reported General Exam - General Exam Comments Initial Comments: GENERAL: No acute distress, well developed, well nourished. HEENT: Normocephalic, atraumatic. Pupils equal, round, reactive to light. Moist mucous membranes. LUNGS: No respiratory distress. Clear to auscultation, no adventitious sounds, no use of accessory muscles. HEART: Regular rate and rhythm without murmur, rub, or gallop. ABDOMEN: Normal bowel sounds. Soft, non-tender, non-distended. BACK: Normal inspection. EXTREMITIES: No edema. No tenderness. Moves all extremities. NEUROLOGIC: Alert & oriented x 3. CN II-XII grossly intact. PSYCHIATRIC: Flat affect tearful at times. Depressed. DERMATOLOGIC: Skin intact, without rashes or lesions noted. Limitations: no limitations Course Vital Signs 02/07/23 13:00 Temperature 98.3 F Pulse Rate 101 H Respiratory 20 Rate Blood Pressure 142/95 O2 Sat by Pulse 98 Oximetry Medical Decision Making - Medical Decision Making Was pt. sent in by a medical professional or institution (MARY KAY Adames, BACK DIGGER OPERATOR, urgent care, hospital, or [place] [facility] facility...) When possible be specific @ -No Did you speak to anyone other than the patient for history (EMS, parent, family, police, friend...)? What history was obtained from this source @ -No Did you review nursing and triage notes (agree or disagree)? Why? @ -I reviewed and agree with nursing and triage notes Were old charts reviewed (outside hosp., previous admission, EMS record, old EKG, old radiological studies, urgent care reports/EKG's, [place] [facility] facility records)? Report findings @ -No old charts were reviewed Differential Diagnosis (chest pain, altered mental status, abdominal pain women, abdominal pain men, vaginal bleeding, weakness, fever, dyspnea, syncope, headache, dizziness, GI bleed, back pain, seizure, CVA, palpatations, mental health, musculoskeletal)? @ -Differential Mental Health Depression, anxiety, bipolar, psychosis, schizophrenia, borderline personality, situational depression, adjustment disorder, behavioral disorder, brain tumor, malingering, substance abuse, encephalopathy, medication reaction, dementia, hypothyroidism, degenerative neurologic disorder, lupus.... This is not meant to be all-inclusive list EKG interpreted by me (3pts min.). @ -None done X-rays interpreted by me (1pt min.). @ -None done CT interpreted by me (1pt min.). @ -None done U/S interpreted by me (1pt. min.). @ -None done What testing was considered but not performed or refused? (CT, X-rays, U/S, labs)? Why? @ -None What meds were considered but not given or refused? Why? @ -None Did you discuss the management of the patient with other professionals (professionals i.e. , PA, BACK DIGGER OPERATOR, lab, RT, psych nurse, transition social worker, admiralty lawyer, teacher, records officer, rn case manager)? Give summary @ -No Was smoking cessation discussed for >3mins.? @ -No Was critical care preformed (if so, how long)? @ -No Were there social determinants of health that impacted care today? How? (Gloria elessness, low income, unemployed, alcoholism, drug addiction, transportation, low edu. Level, literacy, decrease access to med. care, [facility], rehab)? @ -No Was there de-escalation of care discussed even if they declined (Discuss DNR or withdrawal of care, Hospice)? DNR status @ -No What co-morbidities impacted this encounter? (DM, HTN, Smoking, COPD, CAD, Cancer, CVA, ARF, Chemo, Hep., AIDS, mental health diagnosis, sleep apnea, morbid obesity)? @ -History of bipolar depression and anxiety Was patient admitted / discharged? Hospital course, mention meds given and route, prescriptions, significant lab abnormalities, going to OR and other pertinent info. @ -37-year-old female presenting to the emergency room with complaints of severe anxiety, depression and suicidal thoughts with a plan of jumping in front of a bus to kill herself. No auditory or visual hallucinations or lands to harm others. Known history of bipolar depression and anxiety, not currently taking medications. Patient is willing to sign herself in voluntarily to psychiatric services for further evaluation and treatment for severe depression, anxiety and suicidal ideation with plan. Alcohol level elevated but less than 0.08 consequently will clear from a medical standpoint for EPS evaluation. Will obtain drug screen per requirements for inpatient hospitalization at psychiatric unit. No indication for any other diagnostic imaging. Patient placed and psychiatric down, sharps and cords removed from room and will monitor closely. Advised no medication until cleared and evaluated by EPS for anxiety. EPS evaluation complete, patient to be admitted voluntarily to psychiatric unit for further evaluation and treatment for bipolar depression and severe anxiety. Will give 1 mg Ativan for anxiety and monitor response. Some response initially to Ativan however short duration; awaiting bed availability on 3 W. at this time will give an additional 2 mg IM of Ativan for severe anxiety and monitor closely. Resting comfortably awaiting bed on 3 W. Will discharge in stable condition for admission to [facility] psychiatric services for further evaluation and treatment of severe anxiety, bipolar depression and suicidal ideation. Undiagnosed new problem with uncertain prognosis? @ -No Drug Therapy requiring intensive monitoring for toxicity (Heparin, Nitro, Insulin, Cardizem)? @ -No Were any procedures done? @ -No Diagnosis/symptom? @ -Anxiety Acute, or Chronic, or Acute on Chronic? @ -Acute on chronic Uncomplicated (without systemic symptoms) or Complicated (systemic symptoms)? @ -Complicated Side effects of treatment? @ -none Exacerbation, Progression, or Severe Exacerbation] @ -Severe exacerbation Poses a threat to life or bodily function? @ -Yes high-level zings of anxiety with suicidal thoughts and plan. High risk of injuring self Diagnosis/symptom? @ -Bipolar depression with suicidal thoughts and plan Acute, or Chronic, or Acute on Chronic? @ -Acute on chronic Uncomplicated (without systemic symptoms) or Complicated (systemic symptoms)? @ -Complicated Side effects of treatment? @ -No Exacerbation, Progression, or Severe Exacerbation? @ -Severe exacerbation Poses a threat to life or bodily function? How? (Chest pain, USA, SD, pneumonia, PE, COPD, DKA, ARF, appy, cholecystitis, CVA, Diverticulitis, Homicidal, Suicidal, threat to staff... and all critical care pts) @ -Yes, suicidal ideation with plan high risk for harm to self. Case discussed with Dr. Taylor. - Lab Data Lab Results 02/07/23 02/07/23 02/07/23 Range/Units 14:31 14:50 14:54 Urine Color Light Yellow Urine Appearance Cloudy H (Clear) Urine pH 5.5 (5.0-8.0) Ur Specific [place] 1.010 (1.001-1.035) Urine Protein Trace H (Negative) Urine Glucose (UA) Negative (Negative) Urine Ketones Negative (Negative) Urine Blood Trace H (Negative) Urine Nitrite Negative (Negative) Urine Bilirubin Negative (Negative) Urine Urobilinogen <2.0 (<2.0) mg/dL Ur Leukocyte Esterase Large H (Negative) Urine RBC 92 H (0-5) /hpf Urine WBC 46 H (0-5) /hpf Ur Squamous Epith Cells 10 H (0-4) /hpf Urine Bacteria Many H (None) /hpf Hyaline Casts 5 H (0-2) /lpf Urine Mucus Few H (None) /hpf Urine Opiates Screen Not Detected (NotDetected) Ur Oxycodone Screen Not Detected (NotDetected) Urine Methadone Screen Not Detected (NotDetected) Ur Propoxyphene Screen Not Detected (NotDetected) Ur Barbiturates Screen Not Detected (NotDetected) U Tricyclic Antidepress Not Detected (NotDetected) Ur Phencyclidine Scrn Not Detected (NotDetected) Ur Amphetamines Screen Not Detected (NotDetected) U Methamphetamines Scrn Not Detected (NotDetected) U Benzodiazepines Scrn Not Detected (NotDetected) Urine Cocaine Screen Not Detected (NotDetected) U Marijuana (THC) Screen Not Detected (NotDetected) Coronavirus (PCR) Not Detected (Not Detectd) Disposition Clinical Impression: Suicidal ideation, Bipolar disorder Disposition: TRANSFER TO PSYCH HOSP/UNIT Condition: Stable Is patient prescribed a controlled substance at d/c from ED?: No Time of Disposition: 15:31
[2023-02-07] MEDS ORDERED: MAG HYDROX/AL HYDROX/SIMETH 30 ML CUP PO PRN (17:07)
[2023-02-07] MEDS ORDERED: MAGNESIUM HYDROXIDE 2,400 MG/10 ML CUP PO PRN (17:07)
[2023-02-07] MEDS: LORazepam 1 MG TAB PO PRN (18:09)
[2023-02-07] MEDS: diazePAM 5 MG TAB PO SCH (20:30)
[2023-02-07] MEDS: chlordiazePOXIDE 25 MG CAP PO SCH (20:30)
[2023-02-07] MEDS: traZODone HCL 50 MG TAB PO PRN (20:36)
--- NOTE | 2023-02-08 03:55 | P.CONS ---
History of Present Illness - Reason for Consult Consult date: 02/08/23 - History of Present Illness The patient is a 37-year-old female with a PMH of hypertension and seizure disorder who had presented to the emergency room under police custody for depression and suicidal ideation. The patient was admitted to the mental health unit where she was seen and evaluated. The patient reports that she has been feeling really sad as she is currently out of her psychiatric medications. She reports attempting to jump in front of oncoming traffic. She reports a long- standing history of substance use with previous history of heroin use. She reports ongoing alcohol use with daily one fifth of vodka consumption. She denied any physical complaints at the time of interview however. She denied experiencing chest discomfort, shortness of breath, fever, chills, cough, nausea, vomiting, abdominal pain, diarrhea. Patient denied urinary complaints. Review of systems: Pertinent positives and negatives as discussed in HPI, a complete review of systems was performed and all other systems are negative. Physical examination: General: non toxic, no distress, appears at stated age, obese, hirsutism noted Derm: no unusual rashes/lesions, no unusual ecchymoses, warm, dry Head: atraumatic, normocephalic, symmetric Eyes: EOMI, no lid lag, anicteric sclera ENT: Nose and ears atraumatic, no thrush, no pharyngeal erythema Neck: trachea midline, supple Mouth: no lip lesion, mucus membranes moist Cardiovascular: S1S2 reg, no murmur, no edema Lungs: CTA bilateral, no rhonchi, no rales , no accessory muscle use Abdominal: soft, nontender to palpation, no guarding Ext: no gross muscle atrophy, no contractures, Neuro: No gross focal neuro deficits noted Psych: Alert, oriented, appropriate affect Assessment: Leukocytosis Abnormal urinalysis Ongoing alcohol abuse History of heroin abuse Depression and suicidal ideation Imaging: None performed Data Review: Laboratory evaluation was reviewed with WBC count 12.6, hemoglobin 13.7, LDL 152, UA grossly abnormal, with urine toxicology unremarkable. Plan: No signs of active infection at this time, leukocytosis likely due to ongoing stressor Patient denying urinary complaints Monitor for signs of alcohol withdrawal. Strongly advised on importance of cessation Continue thiamine Thank you for allowing us to participate in the care of this patient. We will follow peripherally. Do not hesitate to contact us with questions. Someone can be reached from the [facility] hospitalist group at all hours of the day at [phone]. Past Medical History Past Medical History: Hypertension, Seizure Disorder Additional Past Medical History / Comment(s): Last seizure 12/16/22 History of Any Multi-Drug Resistant Organisms: None Reported Past Surgical History: Section Past Anesthesia/Blood Transfusion Reactions: No Reported Reaction Past Psychological History: Anxiety, Bipolar, Depression Smoking Status: Current every day smoker Past Alcohol Use History: Heavy Past Drug Use History: None Reported - Past Family History Mother Family Medical History: COPD Medications and Allergies Home Medications Medication Instructions Recorded Confirmed Type FLUoxetine HCL [PROzac] 20 mg PO DAILY 06/14/22 02/07/23 History Gabapentin [Neurontin] 800 mg PO TID 06/14/22 02/07/23 History Lurasidone [Latuda] 60 mg PO DAILY 06/14/22 02/07/23 History Mirtazapine [Remeron] 15 mg PO HS 06/14/22 02/07/23 History QUEtiapine [SEROquel] 25 mg PO TID PRN 06/14/22 02/07/23 History metFORMIN HCL [Glucophage] 500 mg PO DAILY 06/14/22 02/07/23 History Albuterol Sulfate [Albuterol 1 - 2 puff PO RT-Q6H PRN 02/07/23 02/07/23 History Sulfate Hfa] Losartan Potassium 100 mg PO DAILY 02/07/23 02/07/23 History amLODIPine [Norvasc] 5 mg PO DAILY 02/07/23 02/07/23 History Allergies Allergy/AdvReac Type Severity Reaction Status Date / Time Penicillins Allergy hives Verified 02/07/23 15:38 Physical Exam Vitals: Vital Signs Temp Pulse Pulse Resp BP BP Pulse Ox 02/07/23 18:06 98 F 110 H 20 138/84 99 02/07/23 13:00 98.3 F 101 H 20 142/95 98 Intake and Output 02/07/23 02/07/23 02/08/23 14:59 22:59 06:59 Other: Weight 115.666 kg 113.398 kg Results CBC & Chem 7: 02/08/23 10:17 02/08/23 10:17 Labs: Abnormal Lab Results - Last 24 Hours (Table) 04/24/23 Range/Units 14:50 Urine Appearance Cloudy H (Clear) Urine Protein Trace H (Negative) Urine Blood Trace H (Negative) Ur Leukocyte Esterase Large H (Negative) Urine RBC 92 H (0-5) /hpf Urine WBC 46 H (0-5) /hpf Ur Squamous Epith Cells 10 H (0-4) /hpf Urine Bacteria Many H (None) /hpf Hyaline Casts 5 H (0-2) /lpf Urine Mucus Few H (None) /hpf
[2023-02-08] MEDS: LORazepam 1 MG TAB PO PRN ×2 (06:30→11:25)
[2023-02-08] MEDS: NICOTINE 14MG/24HR PATCH TRANSDERM SCH (07:49)
[2023-02-08] MEDS: FOLIC ACID 1 MG TAB PO SCH (07:50)
[2023-02-08] MEDS: THIAMINE 100 MG TAB PO SCH (07:50)
[2023-02-08] MEDS: MULTIVITAMINS, THERA 1 EACH TAB PO SCH (07:50)
[2023-02-08] MEDS: diazePAM 5 MG TAB PO SCH (07:50)
[2023-02-08] MEDS: chlordiazePOXIDE 25 MG CAP PO SCH ×3 (07:50→21:18)
[2023-02-08 11:42] LABS: Basophils # (A) 0.1 k/uL (0-0.2); Basophils % (A) 0 %; Eosinophils # (A) 0.2 k/uL (0-0.7); Eosinophils % (A) 2 %; HCT 42.2 % (34.0-46.0); HGB 13.7 gm/dL (11.4-16.0); Lymphocytes # (A) 2.1 k/uL (1.0-4.8); Lymphocytes % (A) 17 %; MCH 27.9 pg (25.0-35.0); MCHC 32.4 g/dL (31.0-37.0); MCV 86.1 fL (80.0-100.0); Mean Platelet Volume 8.8; Monocytes # (A) 0.5 k/uL (0-1.0); Monocytes % (A) 4 %; Neutrophils # (A) 9.6 k/uL (1.3-7.7); Neutrophils % (A) 76 %; Platelet Count 264 k/uL (150-450); WBC 12.6 k/uL (3.8-10.6)
[2023-02-08 11:54] LABS: ALT 14 U/L (4-34); AST 17 U/L (14-36); African American GFR (CKD) >90 (>60 ml/min/1.73 sqM); Albumin 4.3 g/dL (3.5-5.0); Alkaline Phosphatase 53 U/L (38-126); Anion Gap 10 mmol/L; Bilirubin, Delta 0.1 mg/dL (0.0-0.2); Bilirubin,Unconjugated 0.5 mg/dL (0.0-1.1); Blood Urea Nitrogen 11 mg/dL (7-17); Carbon Dioxide 30 mmol/L (22-30); Chloride 101 mmol/L (98-107); Glucose 83 mg/dL (74-99); Non-African American GFR(CKD) >90 (>60 ml/min/1.73 sqM); Potassium 4.8 mmol/L (3.5-5.1); Sodium 141 mmol/L (137-145); Total Bilirubin 0.6 mg/dL (0.2-1.3); Total Protein 7.4 g/dL (6.3-8.2)
[2023-02-08] MEDS ORDERED: ALBUTEROL INHALER 60 PUFF/8 GM INHALER (MHU) INHALATION PRN (13:27)
[2023-02-08] MEDS: DULoxetine HCL 30 MG CAPSULE.DR PO SCH (13:47)
[2023-02-08] MEDS: ARIPiprazole 5 MG TAB PO SCH (13:47)
--- NOTE | 2023-02-08 13:50 | P.HP ---
Psychiatric H&P - . H&P Date: 02/08/23 History & Physical: Allergies Allergy/AdvReac Type Severity Reaction Status Date / Time Penicillins Allergy hives Verified 02/07/23 15:38 Vital Signs Temp 98 F 02/07/23 18:06 Pulse 110 H 02/07/23 18:06 Resp 20 02/07/23 18:06 BP 138/84 02/07/23 18:06 Pulse Ox 99 02/07/23 18:06 FiO2 Intake & Output 02/07/23 02/08/23 02/08/23 18:59 06:59 18:59 Weight 113.398 kg Laboratory Last Values WBC 12.6 k/uL (3.8-10.6) H 02/08/23 10:17 RBC 4.90 m/uL (3.80-5.40) 02/08/23 10:17 Hgb 13.7 gm/dL (11.4-16.0) 02/08/23 10:17 Hct 42.2 % (34.0-46.0) 02/08/23 10:17 MCV 86.1 fL (80.0-100.0) 02/08/23 10:17 MCH 27.9 pg (25.0-35.0) 02/08/23 10:17 MCHC 32.4 g/dL (31.0-37.0) 02/08/23 10:17 RDW 15.0 % (11.5-15.5) 02/08/23 10:17 Plt Count 264 k/uL (150-450) 02/08/23 10:17 MPV 8.8 02/08/23 10:17 Neutrophils % 76 % 02/08/23 10:17 Lymphocytes % 17 % 02/08/23 10:17 Monocytes % 4 % 02/08/23 10:17 Eosinophils % 2 % 02/08/23 10:17 Basophils % 0 % 02/08/23 10:17 Neutrophils # 9.6 k/uL (1.3-7.7) H 02/08/23 10:17 Lymphocytes # 2.1 k/uL (1.0-4.8) 02/08/23 10:17 Monocytes # 0.5 k/uL (0-1.0) 02/08/23 10:17 Eosinophils # 0.2 k/uL (0-0.7) 02/08/23 10:17 Basophils # 0.1 k/uL (0-0.2) 02/08/23 10:17 Sodium 141 mmol/L (137-145) 02/08/23 10:17 Potassium 4.8 mmol/L (3.5-5.1) 02/08/23 10:17 Chloride 101 mmol/L (98-107) 02/08/23 10:17 Carbon Dioxide 30 mmol/L (22-30) 02/08/23 10:17 Anion Gap 10 mmol/L 02/08/23 10:17 BUN 11 mg/dL (7-17) 02/08/23 10:17 Creatinine 0.75 mg/dL (0.52-1.04) 02/08/23 10:17 Est GFR (CKD-EPI)AfAm >90 (>60 ml/min/1.73 sqM) 02/08/23 10:17 Est GFR (CKD-EPI)NonAf >90 (>60 ml/min/1.73 sqM) 02/08/23 10:17 Glucose 83 mg/dL (74-99) 02/08/23 10:17 Calcium 10.0 mg/dL (8.4-10.2) 02/08/23 10:17 Total Bilirubin 0.6 mg/dL (0.2-1.3) 02/08/23 10:17 Conjugated Bilirubin 0.0 mg/dL (0.0-0.3) 02/08/23 10:17 Unconjugated Bilirubin 0.5 mg/dL (0.0-1.1) 02/08/23 10:17 Delta Bilirubin 0.1 mg/dL (0.0-0.2) 02/08/23 10:17 AST 17 U/L (14-36) 02/08/23 10:17 ALT 14 U/L (4-34) 02/08/23 10:17 Alkaline Phosphatase 53 U/L (38-126) 02/08/23 10:17 Total Protein 7.4 g/dL (6.3-8.2) 02/08/23 10:17 Albumin 4.3 g/dL (3.5-5.0) 02/08/23 10:17 TSH 0.687 mIU/L (0.465-4.680) 02/08/23 10:17 Urine Color Light Yellow 02/07/23 14:50 Urine Appearance Cloudy (Clear) H 02/07/23 14:50 Urine pH 5.5 (5.0-8.0) 02/07/23 14:50 Ur Specific [place] 1.010 (1.001-1.035) 02/07/23 14:50 Urine Protein Trace (Negative) H 02/07/23 14:50 Urine Glucose (UA) Negative (Negative) 02/07/23 14:50 Urine Ketones Negative (Negative) 02/07/23 14:50 Urine Blood Trace (Negative) H 02/07/23 14:50 Urine Nitrite Negative (Negative) 02/07/23 14:50 Urine Bilirubin Negative (Negative) 02/07/23 14:50 Urine Urobilinogen <2.0 mg/dL (<2.0) 02/07/23 14:50 Ur Leukocyte Esterase Large (Negative) H 02/07/23 14:50 Urine RBC 92 /hpf (0-5) H 02/07/23 14:50 Urine WBC 46 /hpf (0-5) H 02/07/23 14:50 Ur Squamous Epith Cells 10 /hpf (0-4) H 02/07/23 14:50 Urine Bacteria Many /hpf (None) H 02/07/23 14:50 Hyaline Casts 5 /lpf (0-2) H 02/07/23 14:50 Urine Mucus Few /hpf (None) H 02/07/23 14:50 Urine Opiates Screen Not Detected (NotDetected) 02/07/23 14:31 Ur Oxycodone Screen Not Detected (NotDetected) 02/07/23 14:31 Urine Methadone Screen Not Detected (NotDetected) 02/07/23 14:31 Ur Propoxyphene Screen Not Detected (NotDetected) 02/07/23 14:31 Ur Barbiturates Screen Not Detected (NotDetected) 02/07/23 14:31 U Tricyclic Antidepress Not Detected (NotDetected) 02/07/23 14:31 Ur Phencyclidine Scrn Not Detected (NotDetected) 02/07/23 14:31 Ur Amphetamines Screen Not Detected (NotDetected) 02/07/23 14:31 U Methamphetamines Scrn Not Detected (NotDetected) 02/07/23 14:31 U Benzodiazepines Scrn Not Detected (NotDetected) 02/07/23 14:31 Urine Cocaine Screen Not Detected (NotDetected) 02/07/23 14:31 U Marijuana (THC) Screen Not Detected (NotDetected) 02/07/23 14:31 Coronavirus (PCR) Not Detected (Not Detectd) 02/07/23 14:54 02/08/23 13:24 IDENTIFYING DATA: Patient is a 37-year-old female , currently lives at [facility]. Recently unemployed. He is currently , has 2 kids that are estranged. HPI: Patient presented to the hospital yesterday complaining of suicidal ideations with a plan to possibly jump in front of a bus according to ER report. Patient was also endorsing depression and anxiety which have been increasing lately. Patient apparently has a history of bipolar disorder and apparently has not been taking her medications for about 3 weeks now according to her report. Patient's urine drug screen was negative. She was admitted voluntarily the mental health unit and seen today by ticket writer in the office. Patient appeared to be disheveled in appearance and older than stated age. Patient appears to be fairly anxious and states that she is going to alcohol withdrawal. She claims that she recently relapsed and feels terrible about it. She claims that this occurred about a week ago and started drinking a fifth of vodka a day. She claims that she is not using any other drugs however states that she is having issues at her recovery home as they are believing that she is using other drugs and testing positive for her. Her urine drug screen was negative. Patient also claims that she has been out of her medications for several weeks and states that "they weren't helping me enough" and states that she does not have good follow-up her ability to adjust her medications. She states that she also lost her job recently and claims that the employer "said it was because I was in recovery and using drugs". She claims that she does have a history of manic episodes however seems that she is mainly depressed, endorsing anxiety as well. She did appear to be endorsing hopelessness and worthlessness. Claims that she is still having suicidal thoughts, no intent or plan. Denying any homicidal ideations intent or plan. At this time patient denies any auditory or visual hallucinations. Patient denies any flight of ideas racing thoughts and increased in goal directed behavior. Patient admits to using alcohol heavily, recent relapse as noted above. she also uses cigarettes daily. PAST PSYCHIATRIC HISTORY: Patient states that she has history of bipolar disorder. patient is currently on prozac, latuda, remeron and seroquel however has not been compliant with meds. She claims that she was last psychiatrically hospitalized in [place] about a year ago. Patient denies any psychiatric outpatient follow-up. Patient denies any history of suicide attempts in the past. Past Medical History: Hypertension, Seizure Disorder History of Any Multi-Drug Resistant Organisms: None Reported Past Surgical History: Section Past Anesthesia/Blood Transfusion Reactions: No Reported Reaction Past Psychological History: Anxiety, Bipolar, Depression Smoking Status: Current every day smoker Past Alcohol Use History: Heavy Past Drug Use History: None Reported ALLERGIES: as per EMR CHEMICAL DEPENDENCY HISTORY: as per HPI FAMILY PSYCHIATRIC/SUBSTANCE USE HISTORY: Linus at her father mother and sister all have depression and anxiety SOCIAL HISTORY: Patient was born and raised in [facility]. She claims that she completed up to ninth grade in school. She states that she has never been to [facility] or group home. States that she has 2 kids and is currently estranged from them. She is at this time. She is currently residing at [facility]. MENTAL STATUS EXAM: General Appearance: Patient appears to be overweight, disheveled appearance, stated age is alert, directable, and attempts to cooperate. Patient appears to have poor hygiene and grooming. Behavior: Patient is seated without any agitated behavior. Appears to be anxio us Speech: Patient's speech is fluent and nonpressured. Hesitant Mood/Affect: Patient reports their mood is depressed and anxious, affect is congruent and constricted. Suicidality/Homicidality: Patient denies having any homicidal ideation intent or plan. Denies any suicidal ideations intent or plan Perceptions: Patient denies any visual hallucinations and denies any auditory hallucinations Though content/process: There is no evidence of any delusional thought content and thought process is linear and goal-directed. Focused on symptoms. Memory and concentration: AOX3, grossly intact for the purposes of this session. Can spell "WORLD" backwards Judgment and insight: poor STRENGTHS/WEAKNESSES: strength is that patient is resilient. Weakness is that patient has poor judgment, poor social support and is impulsive INTELLECT: average IMPRESSIONS: Bipolar depression alcohol use disorder severe dependence, in withdrawal nicotine dependence PLAN: -Patient is admitted under voluntary status to MHU for stabilization of psychiatric symptoms and safety. Patient has not signed adult voluntary form and medication consent and is placed in patient's chart. -Medications : Will start patient on trazodone 50 mg qhs prn for sleep, librium increased to 25 mg QID for etoh withdrawal. start abilify 5 mg daily for mood stabilization/mood adjunct, cymbalta 30 mg daily for mood/anxiety -Ativan and Haldol PRN for agitation/aggression -Started thiamine, MVM for etoh use -CIWA protocol with Ativan PRN for ETOH withdrawal -Patient was counselled on substance abuse and desired to cut back on use. patient claims that she is interested in rehab at this time. -Patient was informed of the risks, benefits and side effects of the medication and patient verbally consented to taking the medications. Patient signed med consent form and was placed in chart. -Internal Medicine consult to perform medical evaluation and physical. -NRT - nicotine patch -SW on board for discharge planning. Encourage patient to participate in groups to work on coping skills.
[2023-02-08] MEDS: GABAPENTIN 300 MG CAP PO SCH ×2 (15:34→21:18)
[2023-02-08 16:24] LABS: Chol/HDL Ratio 4.19 Ratio; LDL Cholesterol,Calculated 152.9 mg/dL (0.0-131.0)
[2023-02-08] MEDS: traZODone HCL 50 MG TAB PO PRN (21:18)
[2023-02-09] MEDS: LORazepam 1 MG TAB PO PRN ×3 (06:59→16:29)
[2023-02-09] MEDS: NICOTINE 14MG/24HR PATCH TRANSDERM SCH (08:30)
[2023-02-09] MEDS: DULoxetine HCL 30 MG CAPSULE.DR PO SCH (08:30)
[2023-02-09] MEDS: metFORMIN 500 MG TAB PO SCH (08:30)
[2023-02-09] MEDS: MULTIVITAMINS, THERA 1 EACH TAB PO SCH (08:30)
[2023-02-09] MEDS: ARIPiprazole 5 MG TAB PO SCH (08:30)
[2023-02-09] MEDS: GABAPENTIN 300 MG CAP PO SCH ×3 (08:30→20:57)
[2023-02-09] MEDS: amLODIPine 5 MG TAB PO SCH (08:30)
[2023-02-09] MEDS: chlordiazePOXIDE 25 MG CAP PO SCH ×3 (08:31→20:57)
[2023-02-09] MEDS: FOLIC ACID 1 MG TAB PO SCH (08:31)
[2023-02-09] MEDS: THIAMINE 100 MG TAB PO SCH (08:31)
[2023-02-09] MEDS: ACETAMINOPHEN TAB 325 MG TAB PO PRN ×2 (08:35→16:27)
--- NOTE | 2023-02-09 11:09 | P.PN ---
Progress Note - Text Progress Note Date: 02/09/23 Interval hx: patient was seen today for psychiatric follow up. Patient was sitting in the lounge with 2 other patients working on a word search. Patient was initially happy to see technical publications writer and talkative however after speaking longer she states that she is still feeling fairly depressed. She claims that last night she found it a bit difficult to maintain her sleep and was having suicidal thoughts of wanting to her bedsheets around her neck. She claims that the thought did go away. She claims that she is also having anxiety which is increased here on the unit. She claims that her withdrawal symptoms are improving mildly. She states that she is having an improving appetite. States that she has not showered yet however was encouraged to do so today. Currently she is denying any suicidal or homicidal ideations intent or plan. She is denying any auditory or visual hallucinations today. She has been taking her medications and not reporting any side effects. General Appearance: Patient appears to be overweight, disheveled appearance, stated age is alert, directable, and attempts to cooperate. Patient appears to have poor hygiene and grooming. Behavior: Patient is seated without any agitated behavior. Appears to be anxious Speech: Patient's speech is fluent and nonpressured. Hesitant, improving Mood/Affect: Patient reports their mood is depressed and anxious, improving mildly , affect is congruent and constricted. Suicidality/Homicidality: Patient denies having any homicidal ideation intent or plan. Denies any suicidal ideations intent or plan Perceptions: Patient denies any visual hallucinations and denies any auditory hallucinations Though content/process: There is no evidence of any delusional thought content and thought process is linear and goal-directed. Focused on symptoms. Memory and concentration: AOX3, grossly intact for the purposes of this session Judgment and insight: poor, improving mildly IMPRESSIONS: Bipolar depression alcohol use disorder severe dependence, in withdrawal nicotine dependence PLAN: -Patient is admitted under voluntary status to MHU for stabilization of psychiatric symptoms and safety. Patient has not signed adult voluntary form and medication consent and is placed in patient's chart. -Medications : Increase trazodone 100 mg qhs for sleep, librium decreased to 25 mg TID for etoh withdrawal. abilify 5 mg daily for mood stabilization/mood adjunct, increase cymbalta 60 mg daily for mood/anxiety -Ativan and Haldol PRN for agitation/aggression -thiamine, MVM for etoh use -CIWA protocol with Ativan PRN for ETOH withdrawal -NRT - nicotine patch -SW on board for discharge planning. Encourage patient to participate in groups to work on coping skills. she is agreeable to go back to [facility] upon discharge. likely discharge in 2-3 days once she improves psychiatrically.
[2023-02-09] MEDS: NICOTINE GUM (POLACRILEX) 2 MG GUM BUCCAL PRN ×3 (14:50→21:00)
[2023-02-09] MEDS: traZODone HCL 100 MG TAB PO SCH (20:57)
[2023-02-10] MEDS: NICOTINE GUM (POLACRILEX) 2 MG GUM BUCCAL PRN ×6 (07:04→22:19)
[2023-02-10] MEDS: amLODIPine 5 MG TAB PO SCH (08:46)
[2023-02-10] MEDS: chlordiazePOXIDE 25 MG CAP PO SCH (08:46)
[2023-02-10] MEDS: metFORMIN 500 MG TAB PO SCH (08:46)
[2023-02-10] MEDS: GABAPENTIN 300 MG CAP PO SCH ×3 (08:46→21:11)
[2023-02-10] MEDS: MULTIVITAMINS, THERA 1 EACH TAB PO SCH (08:46)
[2023-02-10] MEDS: FOLIC ACID 1 MG TAB PO SCH (08:46)
[2023-02-10] MEDS: ARIPiprazole 5 MG TAB PO SCH (08:46)
[2023-02-10] MEDS: THIAMINE 100 MG TAB PO SCH (08:46)
[2023-02-10] MEDS: DULoxetine HCL 60 MG CAPSULE.DR PO SCH (08:46)
--- NOTE | 2023-02-10 10:10 | P.PN ---
Progress Note - Text Progress Note Date: 02/10/23 Interval hx: patient was seen today for psychiatric follow up and was sitting in the lounge with another patient watching television. Patient appears to have mildly improving hygiene and grooming since yesterday. She states that she is doing a bit better today with regards her mood however continues to state that she is feeling "very anxious". She states that she is not sure why she is feeling this anxious and we spoke about the different factors that are likely contributing to it. She claims that she is trying to go to groups and trying to participate. She claims that she was able to sleep a bit better last night with the increase in trazodone. We spoke about continuing to decrease her Librium which she was okay with. She claims that her withdrawal symptoms are improving mildly. She states that she is having an improving appetite. States that she showered yesterday. Currently she is denying any suicidal or homicidal ideations intent or plan. She is denying any auditory or visual hallucinations today. She has been taking her medications and not reporting any side effects. General Appearance: Patient appears to be overweight, disheveled appearance, stated age is alert, directable, and attempts to cooperate. Patient appears to have improving mildly hygiene and grooming. Behavior: Patient is seated without any agitated behavior. Appears to be anxious Speech: Patient's speech is fluent and nonpressured, improving Mood/Affect: Patient reports their mood is depressed and anxious, improving mildly , affect is congruent and constricted. Suicidality/Homicidality: Patient denies having any homicidal ideation intent or plan. Denies any suicidal ideations intent or plan Perceptions: Patient denies any visual hallucinations and denies any auditory hallucinations Though content/process: There is no evidence of any delusional thought content and thought process is linear and goal-directed. Focused on symptoms. Memory and concentration: AOX3, grossly intact for the purposes of this session Judgment and insight: poor, improving mildly IMPRESSIONS: Bipolar depression alcohol use disorder severe dependence, in withdrawal nicotine dependence PLAN: -Patient is admitted under voluntary status to MHU for stabilization of psychiatric symptoms and safety. Patient has not signed adult voluntary form and medication consent and is placed in patient's chart. -Medications : trazodone 100 mg qhs for sleep, librium decreased to 20 mg TID for etoh withdrawal and continue tapering down. abilify 5 mg daily for mood stabilization/mood adjunct, cymbalta 60 mg daily for mood/anxiety. added buspar 7.5 mg tid for anxiety. -Ativan and Haldol PRN for agitation/aggression -thiamine, MVM for etoh use -CIWA protocol with Ativan PRN for ETOH withdrawal -NRT - nicotine patch -SW on board for discharge planning. Encourage patient to participate in groups to work on coping skills. she is agreeable to go back to [facility] upon discharge. likely discharge in 1-2 days once she improves psychiatrically.
[2023-02-10] MEDS: LORazepam 1 MG TAB PO PRN ×2 (10:37→20:03)
[2023-02-10] MEDS: busPIRone HCl 5 MG TAB PO SCH ×2 (16:18→21:09)
[2023-02-10] MEDS: traZODone HCL 100 MG TAB PO SCH (21:12)
[2023-02-11 06:38] VITALS: RESP 16
[2023-02-11] MEDS: DULoxetine HCL 60 MG CAPSULE.DR PO SCH (09:01)
[2023-02-11] MEDS: LORazepam 1 MG TAB PO PRN ×2 (09:01→15:03)
[2023-02-11] MEDS: GABAPENTIN 300 MG CAP PO SCH ×3 (09:01→20:49)
[2023-02-11] MEDS: MULTIVITAMINS, THERA 1 EACH TAB PO SCH (09:02)
[2023-02-11] MEDS: THIAMINE 100 MG TAB PO SCH (09:02)
[2023-02-11] MEDS: busPIRone HCl 5 MG TAB PO SCH ×3 (09:02→20:49)
[2023-02-11] MEDS: ACETAMINOPHEN TAB 325 MG TAB PO PRN ×2 (09:02→20:07)
[2023-02-11] MEDS: amLODIPine 5 MG TAB PO SCH (09:04)
[2023-02-11] MEDS: ARIPiprazole 5 MG TAB PO SCH (09:04)
[2023-02-11] MEDS: FOLIC ACID 1 MG TAB PO SCH (09:04)
[2023-02-11] MEDS: metFORMIN 500 MG TAB PO SCH (09:04)
[2023-02-11] MEDS: LITHIUM CARBONATE 300 MG CAP PO SCH ×2 (09:41→20:50)
[2023-02-11] MEDS: NICOTINE 14MG/24HR PATCH TRANSDERM SCH (09:41)
[2023-02-11] MEDS: NICOTINE GUM (POLACRILEX) 2 MG GUM BUCCAL PRN ×2 (09:41→16:29)
--- NOTE | 2023-02-11 11:08 | P.PN ---
Progress Note - Text Progress Note Date: 02/11/23 Interval hx: patient was seen today for psychiatric follow up. Patient was wandering the hallways and agreeable to press writer in the office. Patient appears to have mildly improving hygiene and grooming. She states that she is doing a bit better today with regards her mood. She continues to state that she is feeling anxious. She was agreeable to have her BuSpar increased today. She claims that she was able to see the bit better last night. Claims that she is still having some withdrawal symptoms from alcohol however they are improving mildly. States that the trazodone has been doing well for her at nighttime. Claims that she is trying to go to groups and participated this she can. She believes that she is still able to go back to [facility] on Tuesday if she is discharged. She states that she is having an improving appetite. States that she showered yesterday. Currently she is denying any suicidal or homicidal ideations intent or plan. She is denying any auditory or visual hallucinations today. She has been taking her medications and not reporting any side effects. General Appearance: Patient appears to be overweight, disheveled appearance, stated age is alert, directable, and attempts to cooperate. Patient appears to have improving mildly hygiene and grooming. Behavior: Patient is seated without any agitated behavior. Appears to be anxious, mild improvement Speech: Patient's speech is fluent and nonpressured, improving Mood/Affect: Patient reports their mood is depressed and anxious, improving mildly , affect is congruent Suicidality/Homicidality: Patient denies having any homicidal ideation intent or plan. Denies any suicidal ideations intent or plan Perceptions: Patient denies any visual hallucinations and denies any auditory hallucinations Though content/process: There is no evidence of any delusional thought content and thought process is linear and goal-directed. Focused on symptoms. Memory and concentration: AOX3, grossly intact for the purposes of this session Judgment and insight: improving mildly IMPRESSIONS: Bipolar depression alcohol use disorder severe dependence, in withdrawal nicotine dependence PLAN: -Patient is admitted under voluntary status to MHU for stabilization of psychiatric symptoms and safety. Patient has not signed adult voluntary form and medication consent and is placed in patient's chart. -Medications : trazodone 100 mg qhs for sleep, librium decreased to 10 mg QID for etoh withdrawal and continue tapering down over the weekend. abilify 5 mg daily for mood stabilization/mood adjunct, increase cymbalta 60 mg daily + 30 mg qhs for mood/anxiety. increase buspar 15 mg tid for anxiety. -Ativan and Haldol PRN for agitation/aggression -thiamine, MVM for etoh use -CIWA protocol with Ativan PRN for ETOH withdrawal -NRT - nicotine patch -SW on board for discharge planning. Encourage patient to participate in groups to work on coping skills. she is agreeable to go back to [facility] upon discharge. likely discharge tuesday back to [facility].
[2023-02-11] MEDS: DULoxetine HCL 30 MG CAPSULE.DR PO SCH (20:49)
[2023-02-11] MEDS: traZODone HCL 100 MG TAB PO SCH (20:50)
[2023-02-12] MEDS: NICOTINE GUM (POLACRILEX) 2 MG GUM BUCCAL PRN ×3 (07:26→19:00)
[2023-02-12] MEDS: LORazepam 1 MG TAB PO PRN ×2 (07:26→19:00)
[2023-02-12] MEDS: GABAPENTIN 300 MG CAP PO SCH ×3 (08:21→20:42)
[2023-02-12] MEDS: FOLIC ACID 1 MG TAB PO SCH (08:22)
[2023-02-12] MEDS: amLODIPine 5 MG TAB PO SCH (08:22)
[2023-02-12] MEDS: DULoxetine HCL 60 MG CAPSULE.DR PO SCH (08:22)
[2023-02-12] MEDS: busPIRone HCl 5 MG TAB PO SCH ×3 (08:24→20:41)
[2023-02-12] MEDS: LITHIUM CARBONATE 300 MG CAP PO SCH ×2 (08:24→20:42)
[2023-02-12] MEDS: metFORMIN 500 MG TAB PO SCH (08:24)
[2023-02-12] MEDS: MULTIVITAMINS, THERA 1 EACH TAB PO SCH (08:25)
[2023-02-12] MEDS: THIAMINE 100 MG TAB PO SCH (08:25)
[2023-02-12] MEDS: ACETAMINOPHEN TAB 325 MG TAB PO PRN ×3 (08:26→20:42)
[2023-02-12] MEDS: NICOTINE 14MG/24HR PATCH TRANSDERM SCH (09:13)
[2023-02-12] MEDS ORDERED: IBUPROFEN 600 MG TAB PO STA (18:46)
--- NOTE | 2023-02-12 20:24 | XR ---
EXAMINATION TYPE: XR foot complete LT DATE OF EXAM: 02/12/2023 8:12 PM INDICATION: Patient age:Female; 37 years old; Reason for study: Left foot heal pain and swelling; COMPARISON: None TECHNIQUE: The left foot was examined in the AP, oblique, and lateral projections. FINDINGS: No evidence of any acute osseous pathology. No evidence of soft tissue swelling. Joints are preserve d. Calcaneal plantar spurring is present. Insertional Achilles enthesophyte. IMPRESSION: No evidence of acute fracture. Calcaneal plantar spurring and Achilles enthesophyte.
[2023-02-12] MEDS: DULoxetine HCL 30 MG CAPSULE.DR PO SCH (20:41)
[2023-02-12] MEDS: traZODone HCL 100 MG TAB PO SCH (20:42)
[2023-02-13 06:46] VITALS: TEMP 97.9
[2023-02-13] MEDS: LORazepam 1 MG TAB PO PRN ×3 (07:43→19:57)
[2023-02-13] MEDS: NICOTINE GUM (POLACRILEX) 2 MG GUM BUCCAL PRN ×3 (07:43→19:57)
[2023-02-13] MEDS: MULTIVITAMINS, THERA 1 EACH TAB PO SCH (07:45)
[2023-02-13] MEDS: THIAMINE 100 MG TAB PO SCH (07:45)
[2023-02-13] MEDS: amLODIPine 5 MG TAB PO SCH (07:46)
[2023-02-13] MEDS: busPIRone HCl 5 MG TAB PO SCH ×3 (07:47→20:42)
[2023-02-13] MEDS: NICOTINE 14MG/24HR PATCH TRANSDERM SCH (07:47)
[2023-02-13] MEDS: DULoxetine HCL 60 MG CAPSULE.DR PO SCH (07:49)
[2023-02-13] MEDS: LITHIUM CARBONATE 300 MG CAP PO SCH ×2 (07:49→20:43)
[2023-02-13] MEDS: metFORMIN 500 MG TAB PO SCH (07:49)
[2023-02-13] MEDS: FOLIC ACID 1 MG TAB PO SCH (07:49)
[2023-02-13] MEDS: GABAPENTIN 300 MG CAP PO SCH ×3 (07:49→20:42)
[2023-02-13] MEDS: ACETAMINOPHEN TAB 325 MG TAB PO PRN (07:54)
--- NOTE | 2023-02-13 13:08 | P.PN ---
Progress Note - Text Progress Note Date: 02/12/23 Interval history: Patient was seen resting in the TV room with peers. She was directable and agreeable to speak with va underwriter. She complains of left foot heel pain and has mild swelling. She reports the pain existed prior to admission but appears to be worsening and the swelling is new. She asks for ibuprofen. She reports her mood is depressed with high anxiety. She reports sleeping about 6 hours last night. She reports she is worried about her housing. At this time patient denies any suicidal or homicidal ideation, intent or plan. Denies any auditory or visual hallucinations. Patient denies any side effects from the medications and has been compliant with meds. Vital signs reviewed and HR is elevated at 110 due to alcohol withdrawal. She has also received Ativan 1 mg po x 2 in addition to the scheduled Librium 10 mg QID so far today. Vital Signs 02/11/23 02/12/23 06:37 07:11 Temperature 98.1 F 98.0 F Pulse Rate [ 110 H Left] Pulse Rate [ 72 Right Sitting Pulse Oximetery ] Respiratory 16 16 Rate Blood Pressure 123/64 [Left Arm] Blood Pressure 124/76 [Right Arm Sitting] O2 Sat by Pulse 97 98 Oximetry Mental status exam: General Appearance: Patient appears to be stated age, obese female with hirsutism, mild swelling of left foot, non-pitting edema Behavior: No agitated behavior. Patient is calm and directable Speech: Patient's speech is fluent and non-pressured. Mood/Affect: Mood is depressed with high anxiety, affect is congruent and constricted. Suicidality/Homicidality: Patient denies having any suicidal or homicidal ideation intent or plan. Perceptions: Patient denies any auditory or visual hallucinations. Though content/process: There is no evidence of any delusional thought content and thought process is linear and goal-directed. Talks about pain in foot and worries about housing. Memory and concentration: AOX3, grossly intact for the purposes of this session Judgment and insight: improving mildly Assessment/Plan: Continue with current diagnosis. Patient continues to meet criteria for inpatient psychiatric admission for symptom stabilization and safety. She is currently on Librium 10 mg QID scheduled for alcohol withdrawal, which will continue to be tapered down to 10 mg BID starting tonight. Patient will be maintained on current psychotropic medication regimen: Cymbalta 60 mg daily and 30 mg daily for anxiety/depression, Buspar 15 mg TID for anxiety, Abilify 5 mg daily, Trazodone 100 mg QHS. Discussed with patient that since he is on [place] the long-term use of NSAIDS is not recommended, so I will order her a one time dose of Ibuprofen 600 mg x 1 only to help with the pain and swelling, and she will continue with Tylenol after that. XRAY ordered of Left foot, STAT to rule out fracture. Monitor for medication compliance and for any psychotropic medication side effects. Will continue to monitor ongoing response to treatment. Encouraged participation in milieu.
[2023-02-13] MEDS ORDERED: IBUPROFEN 400 MG TAB PO STA (14:41)
[2023-02-13] MEDS: traZODone HCL 100 MG TAB PO SCH (20:42)
[2023-02-13] MEDS: DULoxetine HCL 30 MG CAPSULE.DR PO SCH (20:43)
--- NOTE | 2023-02-13 20:43 | P.PN ---
Progress Note - Text Progress Note Date: 02/13/23 Interval History: Patient was seen relaxing in the TV room again today. She was directable and agreeable to speak with jingle writer. She again complains of depressed mood and high anxiety, and reports feeling depersonalization, feels unreal and detached. Patient denies any side effects from the medications and has been compliant with meds. Vital signs reviewed and are stable today. Alcohol withdrawal symptoms are controlled with Librium taper. She has received prn Ativan 1 mg po x 3 so far today. At this time patient denies any suicidal or homicidal ideation, intent or plan. Denies any auditory or visual hallucinations.She reports left foot pain is "6/10" today. The Ibuprofen dose 600 mg x 1 yesterday helped the pain and swelling. We reviewed her foot Xray today which shows calcaneal plantar spurring and Achilles enthesophyte. Vital Signs (72 hours) 02/11/23 02/12/23 02/13/23 06:37 07:11 06:45 Temperature 98.1 F 98.0 F 97.9 F Pulse Rate [ 110 H 82 Left] Pulse Rate [ 72 Right Sitting Pulse Oximetery ] Respiratory 16 16 16 Rate Blood Pressure 123/64 132/72 [Left Arm] Blood Pressure 124/76 [Right Arm Sitting] O2 Sat by Pulse 97 98 99 Oximetry Mental status exam: General Appearance: Patient appears to be stated age, obese female with hirsutism, mild swelling of left foot that is improving, non-pitting edema Behavior: No agitated behavior. Patient is calm and directable Speech: Patient's speech is fluent and non-pressured. Mood/Affect: Mood is depressed with high anxiety, affect is congruent and constricted. Suicidality/Homicidality: Patient denies having any suicidal or homicidal ideation intent or plan. Perceptions: Patient denies any auditory or visual hallucinations. Though content/process: There is no evidence of any delusional thought content and thought process is linear and goal-directed. Talks about pain in foot and worries about housing. Memory and concentration: AOX3, grossly intact for the purposes of this session Judgment and insight: improving mildly Assessment/Plan: Continue with current diagnosis. Patient continues to meet criteria for inpatient psychiatric admission for symptom stabilization and safety. She is currently on Librium 10 mg BID scheduled for alcohol withdrawal, which will continue to be tapered down and discontinued. Discontinue CIWA with PRN Ativan since alcohol withdrawal symptoms are resolving. [place] level ordered for Tuesday AM. Consider increase in dose based on result. Patient will be maintained on current psychotropic medication regimen: Cymbalta 60 mg daily and 30 mg daily for anxiety/depression, Buspar 15 mg TID for anxiety, Abilify 5 mg daily, Trazodone 100 mg QHS. Discussed with patient that since he is on [place] the long-term use of NSAIDS is not recommended; I will order her a one more dose of Ibuprofen 400 mg x 1 for foot pain and swelling, and she will continue with Tylenol after that. XRAY Left foot results show calcaneal plantar spurring and Achilles enthesophyte. She will need referral to outpatient orthopedic surgery or podiatry. Monitor for medication compliance and for any psychotropic medication side effects. Will continue to monitor ongoing response to treatment. Encouraged participation in milieu.
[2023-02-14] MEDS: NICOTINE GUM (POLACRILEX) 2 MG GUM BUCCAL PRN (07:06)
[2023-02-14] MEDS: busPIRone HCl 5 MG TAB PO SCH (08:53)
[2023-02-14] MEDS: amLODIPine 5 MG TAB PO SCH (08:53)
[2023-02-14] MEDS: GABAPENTIN 300 MG CAP PO SCH (08:54)
[2023-02-14] MEDS: MULTIVITAMINS, THERA 1 EACH TAB PO SCH (08:55)
[2023-02-14] MEDS: NICOTINE 14MG/24HR PATCH TRANSDERM SCH (08:55)
[2023-02-14] MEDS: DULoxetine HCL 60 MG CAPSULE.DR PO SCH (08:55)
[2023-02-14] MEDS: THIAMINE 100 MG TAB PO SCH (08:55)
[2023-02-14] MEDS: LITHIUM CARBONATE 300 MG CAP PO SCH (08:55)
[2023-02-14] MEDS: FOLIC ACID 1 MG TAB PO SCH (08:55)
[2023-02-14] MEDS: metFORMIN 500 MG TAB PO SCH (08:55)
[2023-02-14 09:00] VITALS: BP 135/83; PULSE 104
[2023-02-14] MEDS ORDERED: hydrOXYzine pamoate 25 MG CAP PO PRN (11:46)
--- NOTE | 2023-02-14 12:35 | P.DS ---
Providers Date of admission: 02/07/23 16:55 Expected date of discharge: 02/14/23 Attending physician: Benton Parikh MD Consults: 02/07/23 17:07 Consult Physician Routine Consulting Provider: [facility] Consult Reason/Comments: H & P with medication review Do you want consulting provider notified?: Yes Primary care physician: Stated None - Discharge Diagnosis(es) (1) Bipolar depression Current Visit: Yes Status: Acute Priority: High (2) Alcohol use disorder, severe, dependence Current Visit: Yes Status: Acute Priority: High (3) Nicotine dependence Current Visit: Yes Status: Acute Priority: Low Hospital Course: Admission HPI: Admission note was completed by marketing writer "Patient is a 37-year-old female , currently lives at [facility]. Recently unemployed. He is currently , has 2 kids that are estranged. Patient presented to the hospital yesterday complaining of suicidal ideations with a plan to possibly jump in front of a bus according to ER report. Patient was also endorsing depression and anxiety which have been increasing lately. Patient apparently has a history of bipolar disorder and apparently has not been taking her medications for about 3 weeks now according to her report. Patient's urine drug screen was negative. She was admitted voluntarily the mental health unit and seen today by marketing writer in the office. Patient appeared to be disheveled in appearance and older than stated age. Patient appears to be fairly anxious and states that she is going to alcohol withdrawal. She claims that she recently relapsed and feels terrible about it. She claims that this occurred about a week ago and started drinking a fifth of vodka a day. She claims that she is not using any other drugs however states that she is having issues at her recovery home as they are believing that she is using other drugs and testing positive for her. Her urine drug screen was negative. Patient also claims that she has been out of her medications for several weeks and states that "they weren't helping me enough" and states that she does not have good follow-up her ability to adjust her medications. She states that she also lost her job recently and claims that the employer "said it was because I was in recovery and using drugs". She claims that she does have a history of manic episodes however seems that she is mainly depressed, endorsing anxiety as well. She did appear to be endorsing hopelessness and worthlessness. Claims that she is still having suicidal thoughts, no intent or plan. Denying any homicidal ideations intent or plan. At this time patient denies any auditory or visual hallucinations. Patient denies any flight of ideas racing thoughts and increased in goal directed behavior. Patient admits to using alcohol heavily, recent relapse as noted above. she also uses cigarettes daily. " Hospital course: Upon admission to the unit patient was directable and agreeable to commence treatment and signed adult voluntary form. Patient got along well with other patients on the unit and followed unit protocol. Patient was compliant with the medications and denied any side effects throughout hospital course. Patient was started on trazodone and increased to a dose of 150 mg daily at bedtime for sleep/mood, Librium was started and scheduled for alcohol withdrawal and gradually tapered off, Abilify by mouth at milligram daily for mood stabilization/mood adjunct, Cymbalta was increased to a dose of 60 mg twice a day for mood/anxiety, BuSpar was increased to dose of 20 mg 3 times a day for anxiety, lithium 300 mg twice a day for mood stabilization/suicidal thoughts. Patient spoke of her stressors and engaged in therapy both group and individual. Patient was also seen by medical team for history and physical exam. Throughout the course of the hospitalization patient gradually improved with regards to mood, anxiety], suicidal thoughts, alcohol withdrawal, sleep and [returned back to their baseline level of functioning]. On the day of discharge patient denied any suicidal or homicidal ideations intent or plan denied any auditory or visual hallucinations. Patient endorsed wanting to live for her sobriety and future. The patient denied any access to guns or weapons. Patient denied any paranoia and did not endorse any delusions. Patient does have a significant history of substance abuse [and] was counseled on abstaining from all substances including alcohol and marijuana. patient was able to arrange going back to [facility] for a few days and was able to also get an intake date for inpt rehab in 2-3 days from now and will directly there afterwards. Patient was also counseled on the medications and need for regular compliance and was encouraged to follow-up with their outpatient appointment for mental health and also for primary care. Mental status exam: General Appearance: Patient appears to be overweight, stated age is alert, pleasant, and cooperative. Patient is in no acute distress and has improved hygiene and grooming Behavior: Patient is calmly seated without any agitated behavior. Cooperative. Speech: Patient's speech is fluent and nonpressured. Mood/Affect: Patient reports their mood is "alright", affect is congruent Suicidality/Homicidality: Patient denies having any suicidal or homicidal ideation intent or plan. Perceptions: Patient denies any auditory or visual hallucinations. Though content/process: There is no evidence of any delusional thought content and thought process is linear and goal-directed. [more future oriented] Memory and concentration: AOX3, grossly intact for the purposes of this session. Can spell "WORLD" backwards correctly. Judgment and insight: [chronically poor, however has] improved with guarded prognosis Impression: []Bipolar depression Alcohol use disorder severe dependence [Nicotine dependence] Plan: -Continue with discharge today as patient has improved and stabilized psychiatrically and is not currently an imminent threat to [herself] and/or others. [Patient will remain at chronically elevated risk for harm to self and/or others due to her impulsivity and substance abuse.] -Continue medications: []Trazodone 150 mg daily at bedtime for sleep/mood, Abilify 5 mg daily for mood stabilization/mood adjunct, Cymbalta 60 mg twice a day for mood/anxiety, BuSpar 20 mg 3 times a day for anxiety, Vistaril twice a day when necessary for anxiety. [place] 300 mg twice a day for mood stabilization/suicidal thoughts. -Patient was counseled on the need for medication compliance and appropriate follow-up at mental health and also primary care for medical issues. Patient verbalized understanding and agreed. -Social work to helpe coordinate patients discharge today to [facility] for a few days then will be going to in rehab. Social work also to arrange for patients follow up appointments [with [facility]] for psychiatric care along with follow up with primary care provider. -Patient counseled on abstaining from recreational drugs and marijuana and alcohol. Was informed/educated on the adverse effects on their physical and mental health. [Patient verbally agreed and understood]. -Patient was instructed to return to the hospital or seek immediate medical care if their psychiatric or medical symptoms do worsen or reoccur. Allergies Allergy/AdvReac Type Severity Reaction Status Date / Time Penicillins Allergy hives Verified 02/07/23 15:38 Laboratory Results WBC 12.6 k/uL (3.8-10.6) H 02/08/23 10:17 RBC 4.90 m/uL (3.80-5.40) 02/08/23 10:17 Hgb 13.7 gm/dL (11.4-16.0) 02/08/23 10:17 Hct 42.2 % (34.0-46.0) 02/08/23 10:17 MCV 86.1 fL (80.0-100.0) 02/08/23 10:17 MCH 27.9 pg (25.0-35.0) 02/08/23 10:17 MCHC 32.4 g/dL (31.0-37.0) 02/08/23 10:17 RDW 15.0 % (11.5-15.5) 02/08/23 10:17 Plt Count 264 k/uL (150-450) 02/08/23 10:17 MPV 8.8 02/08/23 10:17 Neutrophils % 76 % 02/08/23 10:17 Lymphocytes % 17 % 02/08/23 10:17 Monocytes % 4 % 02/08/23 10:17 Eosinophils % 2 % 02/08/23 10:17 Basophils % 0 % 02/08/23 10:17 Neutrophils # 9.6 k/uL (1.3-7.7) H 02/08/23 10:17 Lymphocytes # 2.1 k/uL (1.0-4.8) 02/08/23 10:17 Monocytes # 0.5 k/uL (0-1.0) 02/08/23 10:17 Eosinophils # 0.2 k/uL (0-0.7) 02/08/23 10:17 Basophils # 0.1 k/uL (0-0.2) 02/08/23 10:17 Sodium 141 mmol/L (137-145) 02/08/23 10:17 Potassium 4.8 mmol/L (3.5-5.1) 02/08/23 10:17 Chloride 101 mmol/L (98-107) 02/08/23 10:17 Carbon Dioxide 30 mmol/L (22-30) 02/08/23 10:17 Anion Gap 10 mmol/L 02/08/23 10:17 BUN 11 mg/dL (7-17) 02/08/23 10:17 Creatinine 0.75 mg/dL (0.52-1.04) 02/08/23 10:17 Est GFR (CKD-EPI)AfAm >90 (>60 ml/min/1.73 sqM) 02/08/23 10:17 Est GFR (CKD-EPI)NonAf >90 (>60 ml/min/1.73 sqM) 02/08/23 10:17 Glucose 83 mg/dL (74-99) 02/08/23 10:[address] Glu mg/dL 110 02/08/23 10:17 Hemoglobin A1c 5.5 % (0.0-6.0) 02/08/23 10:17 Calcium 10.0 mg/dL (8.4-10.2) 02/08/23 10:17 Total Bilirubin 0.6 mg/dL (0.2-1.3) 02/08/23 10:17 Conjugated Bilirubin 0.0 mg/dL (0.0-0.3) 02/08/23 10:17 Unconjugated Bilirubin 0.5 mg/dL (0.0-1.1) 02/08/23 10:17 Delta Bilirubin 0.1 mg/dL (0.0-0.2) 02/08/23 10:17 AST 17 U/L (14-36) 02/08/23 10:17 ALT 14 U/L (4-34) 02/08/23 10:17 Alkaline Phosphatase 53 U/L (38-126) 02/08/23 10:17 Total Protein 7.4 g/dL (6.3-8.2) 02/08/23 10:17 Albumin 4.3 g/dL (3.5-5.0) 02/08/23 10:17 Triglycerides 130.00 mg/dL (0.00-149.00) 02/08/23 10:17 Cholesterol 235.00 mg/dL (0.00-200.00) H 02/08/23 10:17 LDL Cholesterol, Calc 152.9 mg/dL (0.0-131.0) H 02/08/23 10:17 VLDL Cholesterol, Calc 26.00 mg/dL (5.00-40.00) 02/08/23 10:17 HDL Cholesterol 56.10 mg/dL (40.00-60.00) 02/08/23 10:17 Cholesterol/HDL Ratio 4.19 Ratio 02/08/23 10:17 TSH 0.687 mIU/L (0.465-4.680) 02/08/23 10:17 Urine Color Light Yellow 02/07/23 14:50 Urine Appearance Cloudy (Clear) H 02/07/23 14:50 Urine pH 5.5 (5.0-8.0) 02/07/23 14:50 Ur Specific [place] 1.010 (1.001-1.035) 02/07/23 14:50 Urine Protein Trace (Negative) H 02/07/23 14:50 Urine Glucose (UA) Negative (Negative) 02/07/23 14:50 Urine Ketones Negative (Negative) 02/07/23 14:50 Urine Blood Trace (Negative) H 02/07/23 14:50 Urine Nitrite Negative (Negative) 02/07/23 14:50 Urine Bilirubin Negative (Negative) 02/07/23 14:50 Urine Urobilinogen <2.0 mg/dL (<2.0) 02/07/23 14:50 Ur Leukocyte Esterase Large (Negative) H 02/07/23 14:50 Urine RBC 92 /hpf (0-5) H 02/07/23 14:50 Urine WBC 46 /hpf (0-5) H 02/07/23 14:50 Ur Squamous Epith Cells 10 /hpf (0-4) H 02/07/23 14:50 Urine Bacteria Many /hpf (None) H 02/07/23 14:50 Hyaline Casts 5 /lpf (0-2) H 02/07/23 14:50 Urine Mucus Few /hpf (None) H 02/07/23 14:50 Urine Opiates Screen Not Detected (NotDetected) 02/07/23 14:31 Ur Oxycodone Screen Not Detected (NotDetected) 02/07/23 14:31 Urine Methadone Screen Not Detected (NotDetected) 02/07/23 14:31 Ur Propoxyphene Screen Not Detected (NotDetected) 02/07/23 14:31 Ur Barbiturates Screen Not Detected (NotDetected) 02/07/23 14:31 U Tricyclic Antidepress Not Detected (NotDetected) 02/07/23 14:31 Ur Phencyclidine Scrn Not Detected (NotDetected) 02/07/23 14:31 Ur Amphetamines Screen Not Detected (NotDetected) 02/07/23 14:31 U Methamphetamines Scrn Not Detected (NotDetected) 02/07/23 14:31 U Benzodiazepines Scrn Not Detected (NotDetected) 02/07/23 14:31 [place] 0.3 mmol/L 02/14/23 07:04 Urine Cocaine Screen Not Detected (NotDetected) 02/07/23 14:31 U Marijuana (THC) Screen Not Detected (NotDetected) 02/07/23 14:31 Coronavirus (PCR) Not Detected (Not Detectd) 02/11/23 11:02 Vital Signs Temp 97.9 F 02/13/23 06:45 Pulse 104 H 02/14/23 08:55 Resp 16 02/13/23 06:45 BP 135/83 02/14/23 08:55 Pulse Ox 99 02/13/23 06:45 FiO2 Intake & Output 02/13/23 02/14/23 02/14/23 18:59 06:59 18:59 Weight 118.7 kg Patient Condition at Discharge: Stable Plan - Discharge Summary Discharge Rx Participant: No New Discharge Prescriptions: New busPIRone HCl [Buspar] 20 mg PO TID 30 Days #180 tab Folic Acid 1 mg PO DAILY 30 Days #30 tab [place] Carbonate 300 mg PO BID 30 Days #60 cap Multivitamins, Thera [Multivitamin (formulary)] 1 each PO DAILY 30 Days #30 tab Nicotine Gum (Polacrilex) [Nicorette] 2 mg BUCCAL Q6HR PRN 30 Days #120 pieceofgum PRN Reason: Nicotine Cravings traZODone HCL 150 mg PO HS 30 Days #30 tablet Acetaminophen Tab [Tylenol] 650 mg PO Q4HR PRN tab PRN Reason: Pain/Discomfort hydrOXYzine pamoate [Vistaril] 50 mg PO BID PRN 30 Days #120 cap PRN Reason: Anxiety Thiamine [Vitamin B-1] 100 mg PO DAILY 30 Days #30 tab DULoxetine HCL [Cymbalta] 60 mg PO BID 30 Days #60 cap Nicotine 14Mg/24Hr Patch [Habitrol] 1 patch TRANSDERM DAILY 14 Days #14 patch Gabapentin [Neurontin] 600 mg PO TID 14 Days #90 cap Continue Albuterol Sulfate [Albuterol Sulfate Hfa] 1 - 2 puff PO RT-Q6H PRN PRN Reason: Shortness Of Breath metFORMIN HCL [Glucophage] 500 mg PO DAILY 30 Days #30 tab amLODIPine [Norvasc] 5 mg PO DAILY 30 Days #30 tab Discontinued Lurasidone [Latuda] 60 mg PO DAILY Gabapentin [Neurontin] 800 mg PO TID Mirtazapine [Remeron] 15 mg PO HS Losartan Potassium 100 mg PO DAILY QUEtiapine [SEROquel] 25 mg PO TID PRN PRN Reason: Anxiety FLUoxetine HCL [PROzac] 20 mg PO DAILY Discharge Medication List Albuterol Sulfate [Albuterol Sulfate Hfa] 1 - 2 puff PO RT-Q6H PRN 02/07/23 [History] Acetaminophen Tab [Tylenol] 650 mg PO Q4HR PRN tab 02/14/23 [Rx] DULoxetine HCL [Cymbalta] 60 mg PO BID 30 Days #60 cap 02/14/23 [Rx] Folic Acid 1 mg PO DAILY 30 Days #30 tab 02/14/23 [Rx] Gabapentin [Neurontin] 600 mg PO TID 14 Days #90 cap 02/14/23 [Rx] [place] Carbonate 300 mg PO BID 30 Days #60 cap 02/14/23 [Rx] Multivitamins, Thera [Multivitamin (formulary)] 1 each PO DAILY 30 Days #30 tab 02/14/23 [Rx] Nicotine 14Mg/24Hr Patch [Habitrol] 1 patch TRANSDERM DAILY 14 Days #14 patch 02/14/23 [Rx] Nicotine Gum (Polacrilex) [Nicorette] 2 mg BUCCAL Q6HR PRN 30 Days #120 pieceofgum 02/14/23 [Rx] Thiamine [Vitamin B-1] 100 mg PO DAILY 30 Days #30 tab 02/14/23 [Rx] amLODIPine [Norvasc] 5 mg PO DAILY 30 Days #30 tab 02/14/23 [Rx] busPIRone HCl [Buspar] 20 mg PO TID 30 Days #180 tab 02/14/23 [Rx] hydrOXYzine pamoate [Vistaril] 50 mg PO BID PRN 30 Days #120 cap 02/14/23 [Rx] metFORMIN HCL [Glucophage] 500 mg PO DAILY 30 Days #30 tab 02/14/23 [Rx] traZODone HCL 150 mg PO HS 30 Days #30 tablet 02/14/23 [Rx] Follow up Appointment(s)/Referral(s): [facility] [Outside] - 02/17/23 (with intake, time to be determined once pt is discharged and they have obtained faxed DC packet. Please call admissions upon dc today to coordinate time.) [facility] [NON-STAFF] - 1 Week Jose Nelson DO [Doctor of Osteopathic Medicine] - 1 Week Patient Instructions/Handouts: How to Stop Smoking (DC), Bipolar Disorder (DC), Alcohol Intoxication (DC) Activity/Diet/Wound Care/Special Instructions: Avoid the use of street drugs and alcohol. Take all medications as prescribed. When you are in need of refills on your medications, please contact your medical provider and/or outpatient psychiatrist to have this done. Please go to scheduled outpatient appointments for aftercare treatment. If symptoms return or become worse, call the crisis line at and/or go to the nearest emergency room for evaluation. Follow up with orthopedic group for heel spur and Achilles tendon enthesopathy Dr. Nelson [phone] Discharge Disposition: OTHER INSTITUTION NOT DEFINED
[2023-02-14] MEDS ORDERED: busPIRone HCl 10 MG TAB PO SCH (16:00)
[2023-02-14] MEDS ORDERED: LITHIUM CARBONATE 150 MG CAP PO SCH (21:00)
[2023-02-14] MEDS ORDERED: LITHIUM CARBONATE 300 MG CAP PO SCH (21:00)
[2023-02-14] MEDS ORDERED: DULoxetine HCL 60 MG CAPSULE.DR PO SCH (21:00)
[2023-02-14] MEDS ORDERED: traZODone HCL 50 MG TAB PO SCH (21:00)
== END 2023-02-14 12:30 | disposition other institution (70) | DRG 753 ==
LOC: EC 12:23 → 3MHU 16:55
PROVIDERS: ADMIT Psychiatry & Neurology Psychiatry; ATTEND Psychiatry & Neurology Psychiatry
DX: F31.30 Bipolar disorder, current episode depressed, mild or moderate severity, unspecified (principal); F10.239 Alcohol dependence with withdrawal, unspecified; I10 Essential (primary) hypertension; G40.909 Epilepsy, unspecified, not intractable, without status epilepticus; F41.9 Anxiety disorder, unspecified; F17.210 Nicotine dependence, cigarettes, uncomplicated; R45.851 Suicidal ideations; T43.226A Underdosing of selective serotonin reuptake inhibitors, initial encounter; Z62.890 Parent-child estrangement NEC; T43.026A Underdosing of tetracyclic antidepressants, initial encounter; T43.596A Underdosing of other antipsychotics and neuroleptics, initial encounter; D72.829 Elevated white blood cell count, unspecified; R82.90 Unspecified abnormal findings in urine; F11.11 Opioid abuse, in remission; Z91.128 Patient's intentional underdosing of medication regimen for other reason; Z88.0 Allergy status to penicillin; Z79.899 Other long term (current) drug therapy; Z63.5 Disruption of family by separation and divorce; Z56.0 Unemployment, unspecified; Z71.41 Alcohol abuse counseling and surveillance of alcoholic; Z71.51 Drug abuse counseling and surveillance of drug abuser
CPT/HCPCS: 80053; 80061; 80076; 80178; 80306; 81001; 82075; 83036; 84443; 85025; 87635; 96372; 99285